=== PATIENT | female | born 1975 | race Two or more races ===

== ENCOUNTER 2018-02-09 13:35 | Inpatient (IN) | payer BC ==
[~2018-02-09] VITALS: Ht 153.2 cm; Wt 76.2 kg
[2018-02-09] MEDS ORDERED: AUGMENTIN 875-1 EAC1 ORAL (13:45)
[2018-02-09] MEDS ORDERED: BACTRIM DOUBLE S1 E1 ORAL (13:45)
[2018-02-09] MEDS ORDERED: Sodium Chloride 500ML 500 ML IV ONE (13:49)
[2018-02-09 14:29] VITALS: BP 135/80
[2018-02-09 15:13] LABS: BASOPHILS % (AUTO) 0.7 % (0.0-2.0); EOSINOPHILS % (AUTO) 1.6 % (0.0-3.0); HEMATOCRIT 36.2 % (37.0-47.0); HEMOGLOBIN 11.9 G/DL (12.0-16.0); LYMPHOCYTES % (AUTO) 25.5 % (20.0-45.0); MEAN CORPUSCULAR VOLUME 86 FL (80-99); MONOCYTES % (AUTO) 4.4 % (1.0-10.0); NEUTROPHILS % (AUTO) 67.8 % (45.0-75.0); PLATELET COUNT 300 K/UL (150-450); RED BLOOD COUNT 4.18 M/UL (4.20-5.40)
[2018-02-09] MEDS ORDERED: Morphine Sulfate 2mg/ml Inj IVP PRN ×2 (15:15→18:30)
[2018-02-09 15:23] LABS: ANION GAP 8 mmol/L (5-15); BLOOD UREA NITROGEN 15 mg/dL (7-18); CARBON DIOXIDE 26 MMOL/L (21-32); CHLORIDE 104 MMOL/L (98-107); CREATININE 0.8 MG/DL (0.55-1.30); POTASSIUM 3.6 MMOL/L (3.5-5.1); SODIUM 138 MMOL/L (136-145)
[2018-02-09 15:25] LABS: ALANINE AMINOTRANSFERASE 25 U/L (12-78); ALBUMIN 3.4 G/DL (3.4-5.0); ALBUMIN/GLOBULIN RATIO 0.6 (1.0-2.7); ALKALINE PHOSPHATASE 112 U/L (46-116); ASPARTATE AMINO TRANSFERASE 16 U/L (15-37); BILIRUBIN,TOTAL 0.2 MG/DL (0.2-1.0)
[2018-02-09 15:27] LABS: APPEARANCE,URINE SLIGHTLY CLOUDY; BILIRUBIN, URINE NEGATIVE (NEGATIVE); GLUCOSE, URINE (UA) NEGATIVE (NEGATIVE); KETONES,URINE 1+ (NEGATIVE); LEUKOCYTE ESTERASE ,URINE 2+ (NEGATIVE); NITRITE,URINE NEGATIVE (NEGATIVE); PH,URINE 6 (4.5-8.0); PROTEIN,URINE 2+ (NEGATIVE); UROBILINOGEN,URINE NORMAL MG/DL (0.0-1.0)
[2018-02-09 15:29] LABS: COLOR,URINE YELLOW
--- NOTE | 2018-02-09 16:05 | Diagnostic Imaging Report ---
Indication: Chest pain Technique: One view of the chest Comparison: none Findings: Lungs and pleural spaces are clear. Heart size is normal Impression: No acute process
[2018-02-09 17:01] VITALS: BP 110/60
--- NOTE | 2018-02-09 18:08 | Emergency Room Report ---
History of Present Illness General Chief Complaint: Skin Rash/Abscess Source: Patient Present Illness HPI 42-year-old female presents ED for evaluation. Patient was referred here by Dr. Heck. Patient has history of hidradenitis for the last 4 years. Has received multiple treatments including antibiotics without resolution. States symptoms are getting worse. Denies pain. Denies fevers or chills. No other aggravating relieving factors. Denies any other associated symptoms Allergies: Coded Allergies: No Known Allergies (Unverified , 02/09/18) Patient History Past Medical History: other - hidradenitis Past Surgical History: none Pertinent Family History: none Social History: Denies: smoking, alcohol use, drug use Last Menstrual Period: 01/22/2018 Now: No Immunizations: UTD Reviewed Nursing Documentation: PMH: Agreed; PSxH: Agreed Nursing Documentation-PMH Past Medical History: No Stated History Review of Systems All Other Systems: negative except mentioned in HPI Physical Exam Vital Signs Date Time Temp Pulse Resp B/P (MAP) Pulse Ox O2 Delivery O2 Flow Rate FiO2 02/09/18 13:39 98.4 89 12 135/80 97 Room Air Sp02 EP Interpretation: reviewed, normal General Appearance: no apparent distress, alert, GCS 15, non-toxic Head: normocephalic, atraumatic Eyes: bilateral eye normal inspection, bilateral eye PERRL ENT: hearing grossly normal, normal pharynx, no angioedema, normal voice Neck: full range of motion, supple/symm/no masses Respiratory: chest non-tender, lungs clear, normal breath sounds, speaking full sentences Cardiovascular #1: regular rate, rhythm, no edema Cardiovascular #2: 2+ carotid (R), 2+ carotid (L), 2+ radial (R), 2+ radial (L) , 2+ dorsalis pedis (R), 2+ dorsalis pedis (L) Gastrointestinal: normal bowel sounds, non tender, soft, non-distended, no guarding, no rebound Rectal: deferred Genitourinary: normal inspection, no CVA tenderness Musculoskeletal: back normal, gait/station normal, normal range of motion, non- tender Neurologic: alert, oriented x3, responsive, motor strength/tone normal, sensory intact, speech normal Psychiatric: judgement/insight normal, memory normal, mood/affect normal, no suicidal/homicidal ideation Reflexes: 3+ bicep (R), 3+ bicep (L), 3+ tricep (R), 3+ tricep (L), 3+ knee (R) , 3+ knee (L) Skin: other - hidradenitis bilateral axilla Lymphatic: no adenopathy Medical Decision Making Diagnostic Impression: Primary Impression: Hidradenitis axillaris ER Course Hospital Course 42-year-old female referred to ED for evaluation of her hidradenitis Differential diagnoses include: Cellulitis, abscess, rash. Clinical course Patient placed on stretcher. After initial history and physical I ordered labs , blood Cx, EKG, CXR labs reviewed - no leukocytosis, Hb/Hct stable, no electrolyte abnormalities. EKG-normal sinus rhythm no acute changes interpreted by me Chest x-ray unremarkable antibiotics given. Dr. Heck consulted and aware. Case discussed with Dr Rivera and he agreed to accept the patient to his service for further care and support Diagnosis - hidradenitis Patient admitted to floor in serious condition EKG Diagnostic Results Rate: normal Rhythm: NSR ST Segments: no acute changes ASA given to the pt in ED: No Rhythm Strip Diag. Results EP Interpretation: yes Rhythm: NSR, no PVC's, no ectopy Chest X-Ray Diagnostic Results Chest X-Ray Diagnostic Results : Chest X-Ray Ordered: Yes # of Views/Limited/Complete: 1 View Indication: Other - preop EP Interpretation: Yes Interpretation: no consolidation, no effusion, no pneumothorax, no acute cardiopulmonary disease Impression: No acute disease Electronically Signed by: Electronically signed by Dimitry Gonzalez MD Last Vital Signs Date Time Temp Pulse Resp B/P (MAP) Pulse Ox O2 Delivery O2 Flow Rate FiO2 02/09/18 17:01 98.3 65 19 110/60 (77) 97 02/09/18 16:31 Room Air Status: improved Disposition: ADMITTED INPATIENT Condition: Stable Referrals: Shalini Heck MD (PCP) Dimitry Gonzalez MD Feb 09, 2018 18:08
--- NOTE | 2018-02-09 18:34 | History and Physical ---
History of Present Illness General Date patient seen: Feb 09, 2018 Time patient seen: 18:05 Reason for Hospitalization: Skin Rash/Abscess Present Illness HPI 42 yo female with no sig pmh presents with complaints of b/l axillary pain. Patient states pain has been getting worse since a month ago. States there is drainage from the area. Denies any fevers/chills. States pain is 10/10 in severity, denies any radiation. States drainage is thick. States she has tried taking antibiotics such as augmentin and bactrim without resolution of symptoms. Social Hx: reviewed, denies any smoking, drug use , or alcohol use fam hx: reviewed, denies any sig past fam hx code status reviewed, would like to remain full code. Allergies: Coded Allergies: No Known Allergies (Unverified , 02/09/18) Medication History Scheduled Amoxicillin/Potassium Clav 875-125* (Augmentin 875-125 Tablet*), 1 TAB ORAL TWICE A DAY, (Reported) Trimethoprim/Sulfamethoxazole (Bactrim 400-80 mg Tablet), 1 TAB ORAL TWICE A DAY , (Reported) Patient History History Provided By: Patient Healthcare decision maker Resuscitation status Full Code Advanced Directive on File No Review of Systems Constitutional: Reports: weakness; Denies: chills, sweats, fever, malaise Eye: Denies: eye pain, blurred vision, tearing, double vision, nose pain, nose congestion, acuity changes, discharge ENT: Denies: ear pain, ear discharge, nose pain, nose congestion, throat pain, throat swelling, mouth pain, hearing loss Respiratory: Denies: cough, orthopnea, shortness of breath, stridor, wheezing, BOBO, sputum Cardiovascular: Reports: see HPI; Denies: chest pain, edema, palpitations, syncope, PND Gastrointestinal: Denies: abdominal pain, constipation, diarrhea, nausea, vomiting, melena, hematemesis Genitourinary: Denies: discharge, dysuria, frequency, hematuria, pain, retention, incontinence, urgency, vag bleed/dc Musculoskeletal: Denies: back pain, gout, joint pain, joint swelling, muscle pain, muscle stiffness Skin: Reports: rash, change in color, lesions, other - drainage from axilla b/ l with pain ; Denies: change in hair/nails, dryness Psychiatric: Denies: prior hx, anxiety, depressed feelings, emotional problems , SI, HI, hallucinations Neurological: Denies: headache, numbness, paresthesia, seizure, tingling, tremors, focal weakness, syncope, dizziness Endocrine: Denies: excessive sweating, flushing, intolerance to temperature, increased thirst, increased urine, unexplained weight loss Hematologic/Lymphatic: Denies: anemia, blood clots, easy bleeding, easy bruising, swollen glands, diathesis Physical Exam General Appearance: WD/WN, no apparent distress Lines, tubes and drains: peripheral HEENT: normocephalic, atraumatic, anicteric Neck: non-tender, normal alignment, supple, normal inspection Respiratory/Chest: chest wall non-tender, lungs clear, normal breath sounds, no respiratory distress, no accessory muscle use Cardiovascular/Chest: normal peripheral pulses, normal rate, regular rhythm Abdomen: normal bowel sounds, non tender, soft, no organomegaly, no mass Extremities: normal range of motion, other - +TTP b/l axillas Skin Exam: other - b/l abscesses around 8cm, severe erythema with mucopurulent discharge 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, no motor/sensory deficits, alert, oriented x 3, responsive, normal mood/affect Last 24 Hour Vital Signs Date Time Temp Pulse Resp B/P (MAP) Pulse Ox O2 Delivery O2 Flow Rate FiO2 02/09/18 17:01 98.3 65 19 110/60 (77) 97 02/09/18 16:31 Room Air 02/09/18 15:25 98.4 73 12 135/80 97 Room Air 02/09/18 14:29 98.4 73 12 135/80 97 Room Air 02/09/18 13:39 98.4 89 12 135/80 97 Room Air Laboratory Tests Test 02/09/18 14:45 02/09/18 14:55 White Blood Count 9.0 K/UL (4.8-10.8) Red Blood Count 4.18 M/UL (4.20-5.40) L Hemoglobin 11.9 G/DL (12.0-16.0) L Hematocrit 36.2 % (37.0-47.0) L Mean Corpuscular Volume 86 FL (80-99) Mean Corpuscular Hemoglobin 28.4 PG (27.0-31.0) Mean Corpuscular Hemoglobin Concent 32.9 G/DL (32.0-36.0) Red Cell Distribution Width 13.0 % (11.6-14.8) Platelet Count 300 K/UL (150-450) Mean Platelet Volume 7.5 FL (6.5-10.1) Neutrophils (%) (Auto) 67.8 % (45.0-75.0) Lymphocytes (%) (Auto) 25.5 % (20.0-45.0) Monocytes (%) (Auto) 4.4 % (1.0-10.0) Eosinophils (%) (Auto) 1.6 % (0.0-3.0) Basophils (%) (Auto) 0.7 % (0.0-2.0) Prothrombin Time 10.8 SEC (9.30-11.50) Prothromb Time International Ratio 1.0 (0.9-1.1) Activated Partial Thromboplast Time 31 SEC (23-33) Sodium Level 138 MMOL/L (136-145) Potassium Level 3.6 MMOL/L (3.5-5.1) Chloride Level 104 MMOL/L (98-107) Carbon Dioxide Level 26 MMOL/L (21-32) Anion Gap 8 mmol/L (5-15) Blood Urea Nitrogen 15 mg/dL (7-18) Creatinine 0.8 MG/DL (0.55-1.30) Estimat Glomerular Filtration Rate > 60 mL/min (>60) Glucose Level 108 MG/DL (74-106) H Calcium Level 9.0 MG/DL (8.5-10.1) Total Bilirubin 0.2 MG/DL (0.2-1.0) Aspartate Amino Transf (AST/SGOT) 16 U/L (15-37) Alanine Aminotransferase (ALT/SGPT) 25 U/L (12-78) Alkaline Phosphatase 112 U/L (46-116) Total Protein 8.8 G/DL (6.4-8.2) H Albumin 3.4 G/DL (3.4-5.0) Globulin 5.4 g/dL Albumin/Globulin Ratio 0.6 (1.0-2.7) L Lipase 292 U/L (73-393) Urine Color Yellow Urine Appearance Slightly cloudy Urine pH 6 (4.5-8.0) Urine Specific [place] 1.020 (1.005-1.035) Urine Protein 2+ (NEGATIVE) H Urine Glucose (UA) Negative (NEGATIVE) Urine Ketones 1+ (NEGATIVE) H Urine Blood 5+ (NEGATIVE) H Urine Nitrite Negative (NEGATIVE) Urine Bilirubin Negative (NEGATIVE) Urine Urobilinogen Normal MG/DL (0.0-1.0) Urine Leukocyte Esterase 2+ (NEGATIVE) H Urine RBC Tntc /HPF (0 - 2) H Urine WBC 10-15 /HPF (0 - 2) H Urine Squamous Epithelial Cells Few /LPF (NONE/OCC) Urine Bacteria Few /HPF (NONE) Urine Mucus Moderate /LPF (NONE/OCC) H Urine HCG, Qualitative Negative (NEGATIVE) Height (Feet): 5 Height (Inches): 4.00 Weight (Pounds): 168 Medications Current Medications Medications (Trade) Dose Ordered Sig/Nicky Route PRN Reason Start Time Stop Time Status Last Admin Dose Admin Morphine Sulfate (Morphine Sulfate) 2 mg Q6H PRN IVP pain 02/09/18 15:15 02/16/18 15:14 Assessment/Plan Problem List: (1) Rash and other nonspecific skin eruption ICD Codes: R21 - Rash and other nonspecific skin eruption SNOMED: 735811615, 175698364 (2) Abscesses of both axillae ICD Codes: L02.411 - Cutaneous abscess of right axilla; L02.412 - Cutaneous abscess of left axilla SNOMED: 05156343 (3) Cellulitis of axilla ICD Codes: L03.119 - Cellulitis of unspecified part of limb SNOMED: 19058985 (4) Purulent abscess ICD Codes: L02.91 - Cutaneous abscess, unspecified SNOMED: 263124379 (5) Hidradenitis axillaris ICD Codes: L73.2 - Hidradenitis suppurativa SNOMED: 021430143 (6) Failure of outpatient treatment ICD Codes: Z78.9 - Other specified health status SNOMED: 999506026 Status: stable Assessment/Plan #Rash #Abscesses of both axilae #Cellulitis of axilla #Purulent abscess #hidradenitis axillaris #failure of outpatient treatment -start broad spectrum abx, vanco, zosyn. -continue pain control with IV Morphine 2mg q4hrs prn pain -cx wound -not septic, vitals stable, wounds very tender b/l axilla with surrounding cellulitis and mucopurulent discharge, very concerning for severe infection -abscess that was resistant to antibiotics given before ( failed outpatient treatment) -Dr. Heck consulted, likely OR tomorrow AM -diet now and NPO after midnight -hold anticoagulation for likely surgery -ekg reviewed, nsr, no acute st t wave changes noted -no cardiac risk factors noted, patient is low risk for surgery. mets >4. -patient is medically optimized for surgery -postop care: incentive spirometry, antibiotics, pain control, anticoagulation ppx per surgery recs ppx; scd diet: npo after midnight Patient will need at least 2-3 midnights stay for full workup and care admit inpatient I have spent over 79 minutes on this patient's case, and over 45 minutes was dedicated to counseling and/or care coordination. Aditya Zarco MD Feb 09, 2018 18:34
[2018-02-09 20:00] VITALS: BP 99/63
[2018-02-09] MEDS ORDERED: Vancomycin 1.5 GM/D5W 250ML IVPB ONE (20:00)
[2018-02-09] MEDS: Piperacillin/Tazobactam 3.375 GM in D5W 110 ML IVPB SCH (21:56)
[2018-02-10] VITALS (15 sets, daily range): BP systolic 94–145; BP diastolic 54–78
[2018-02-10] MEDS: Piperacillin/Tazobactam 3.375 GM in D5W 110 ML IVPB SCH ×3 (06:01→22:57)
--- NOTE | 2018-02-10 07:42 | Anethesia Preoperative Eval ---
Anesthesia Pre-op PMH/ROS General Date of Evaluation: Feb 10, 2018 Time of Evaluation: 09:35 Anesthesiologist: Luz Gomez CRNA ASA Score: ASA 2 Mallampati Score Class I : Soft palate, uvula, fauces, pillars visible Class II: Soft palate, uvula, fauces visible Class III: Soft palate, base of uvula visible Class IV: Only hard plate visible Mallampati Classification: Class II Surgeon: Maria R Diagnosis: hydradenitits (B) axilla; cellulitis Surgical Procedure: (B) axillary debridement with flap (B) Anesthesia History: none Family History: no anesthesia problems Allergies: Coded Allergies: No Known Allergies (Unverified , 02/09/18) Medications: see eMAR Patient NPO?: Yes NPO Date: Feb 10, 2018 NPO Time: 00:00 Past Medical History Cardiovascular: Denies: HTN, CAD, [place], valve dz, arrhythmia, other Gastrointestinal/Genitourinary: Denies: GERD, CRI, ESRD, other Neurologic/Psychiatric: Denies: dementia, CVA, depression/anxiety, TIA, other Endocrine: Denies: DM, hypothyroidism, steroids, other HEENT: Denies: cataract (L), cataract (R), glaucoma, SALAMATOF (L), SALAMATOF (R), other Hematology/Immune: Denies: anemia, DVT, bleeding disorder, other Musculoskeletal/Integumentary: Reports: other - (B) hydradenitis; Denies: OA, RA, DJD, DDD, edema Other: obesity PMH Narrative: hx of recurrent (B) hydradenitis x 4 yrs, admit to ED 02/09/18 pain 10/10 PSxH Narrative: RIGHT leg surgery x 9 Anesthesia Pre-op Phys. Exam Physician Exam Last Vital Signs Date Time Temp Pulse Resp B/P (MAP) Pulse Ox O2 Delivery O2 Flow Rate FiO2 02/10/18 06:44 98.2 55 17 107/60 (76) 98 02/09/18 21:00 Room Air Constitutional: NAD Neurologic: CN 2-12 intact Cardiovascular: RRR Respiratory: CTA Gastrointestinal: S/NT/ND Airway Exam Mallampati Score: Class II MO: full Neck: no limitations TMD: >3FB ROM: full Teeth: intact Dentures: no upper, no lower Anesthesia Pre-op A/P Labs Hematology Test 02/09/18 14:45 White Blood Count 9.0 K/UL (4.8-10.8) Red Blood Count 4.18 M/UL (4.20-5.40) L Hemoglobin 11.9 G/DL (12.0-16.0) L Hematocrit 36.2 % (37.0-47.0) L Mean Corpuscular Volume 86 FL (80-99) Mean Corpuscular Hemoglobin 28.4 PG (27.0-31.0) Mean Corpuscular Hemoglobin Concent 32.9 G/DL (32.0-36.0) Red Cell Distribution Width 13.0 % (11.6-14.8) Platelet Count 300 K/UL (150-450) Mean Platelet Volume 7.5 FL (6.5-10.1) Neutrophils (%) (Auto) 67.8 % (45.0-75.0) Lymphocytes (%) (Auto) 25.5 % (20.0-45.0) Monocytes (%) (Auto) 4.4 % (1.0-10.0) Eosinophils (%) (Auto) 1.6 % (0.0-3.0) Basophils (%) (Auto) 0.7 % (0.0-2.0) Coagulation Test 02/09/18 14:45 Prothrombin Time 10.8 SEC (9.30-11.50) Prothromb Time International Ratio 1.0 (0.9-1.1) Activated Partial Thromboplast Time 31 SEC (23-33) Chemistry Test 02/09/18 14:45 Sodium Level 138 MMOL/L (136-145) Potassium Level 3.6 MMOL/L (3.5-5.1) Chloride Level 104 MMOL/L (98-107) Carbon Dioxide Level 26 MMOL/L (21-32) Anion Gap 8 mmol/L (5-15) Blood Urea Nitrogen 15 mg/dL (7-18) Creatinine 0.8 MG/DL (0.55-1.30) Estimat Glomerular Filtration Rate > 60 mL/min (>60) Glucose Level 108 MG/DL (74-106) H Calcium Level 9.0 MG/DL (8.5-10.1) Total Bilirubin 0.2 MG/DL (0.2-1.0) Aspartate Amino Transf (AST/SGOT) 16 U/L (15-37) Alanine Aminotransferase (ALT/SGPT) 25 U/L (12-78) Alkaline Phosphatase 112 U/L (46-116) Total Protein 8.8 G/DL (6.4-8.2) H Albumin 3.4 G/DL (3.4-5.0) Globulin 5.4 g/dL Albumin/Globulin Ratio 0.6 (1.0-2.7) L Lipase 292 U/L (73-393) Urine Test Test 02/09/18 14:55 Urine HCG, Qualitative Negative (NEGATIVE) Studies Pre-op Studies: EKG - NSR, CXR - no acute disease Risk Assessment & Plan Assessment: ASA 1, ok to proceed Plan: GA Status Change Before Surgery: No Pre-Antibiotics Drug: zosyn and vancomycin continued from floor Given Within 1 Hr of Incision: Yes Time Given: 09:45 Luz Gomez CRNA Feb 10, 2018 07:42
--- NOTE | 2018-02-10 08:11 | General Progress Note ---
Assessment/Plan Problem List: (1) Rash and other nonspecific skin eruption ICD Codes: R21 - Rash and other nonspecific skin eruption SNOMED: 489270223, 701399456 (2) Abscesses of both axillae ICD Codes: L02.411 - Cutaneous abscess of right axilla; L02.412 - Cutaneous abscess of left axilla SNOMED: 39221770 (3) Cellulitis of axilla ICD Codes: L03.119 - Cellulitis of unspecified part of limb SNOMED: 86044474 (4) Purulent abscess ICD Codes: L02.91 - Cutaneous abscess, unspecified SNOMED: 506219258 (5) Hidradenitis axillaris ICD Codes: L73.2 - Hidradenitis suppurativa SNOMED: 125435457 (6) Failure of outpatient treatment ICD Codes: Z78.9 - Other specified health status SNOMED: 284442358 Status: stable, unchanged Assessment/Plan #Rash #Abscesses of both axilae #Cellulitis of axilla #Purulent abscess #hidradenitis axillaris #failure of outpatient treatment - cont broad spectrum abx : Vanco/zosyn - may need I&D - Dr. Heck aware, pending eval and recs - likely OR today - vitals stable, pending AM labs - pain well controlled, cont IV morphine -abscess that was resistant to antibiotics given before ( failed outpatient treatment) -MPO -hold anticoagulation for likely surgery -ekg reviewed, nsr, no acute st t wave changes noted -no cardiac risk factors noted, patient is low risk for surgery. mets >4. -patient is medically optimized for surgery -postop care: incentive spirometry, antibiotics, pain control, anticoagulation ppx per surgery recs ppx; scd diet: npo I have spent over 44 minutes on this patient's case, counseling and/or care coordination and about 25 minutes of face to face time Subjective Date patient seen: Feb 10, 2018 Time patient seen: 08:08 Allergies: Coded Allergies: No Known Allergies (Unverified , 02/09/18) Subjective f/u axillary abscess with drainage, pain possible I&D required still on broad spectrum abx Dr. Heck aware, pending evaluation no acute events overnight denies fevers/chills pain well controlled ROS: 12 point ros negative except for the above Objective Last 24 Hour Vital Signs Date Time Temp Pulse Resp B/P (MAP) Pulse Ox O2 Delivery O2 Flow Rate FiO2 02/10/18 06:44 98.2 55 17 107/60 (76) 98 02/10/18 00:00 98.3 73 19 98/54 (69) 98 02/09/18 21:00 Room Air 02/09/18 20:00 97.7 67 18 99/63 (75) 98 02/09/18 17:01 98.3 65 19 110/60 (77) 97 02/09/18 16:31 Room Air 02/09/18 15:25 98.4 73 12 135/80 97 Room Air 02/09/18 14:29 98.4 73 12 135/80 97 Room Air 02/09/18 13:39 98.4 89 12 135/80 97 Room Air Intake and Output 02/09/18 02/10/18 18:59 06:59 Intake Total 360.0 ml Balance 360.0 ml Intake IV Total 360.0 ml # Voids 1 Laboratory Tests 02/09/18 14:45: White Blood Count 9.0, Red Blood Count 4.18L, Hemoglobin 11.9L, Hematocrit 36.2L , Mean Corpuscular Volume 86, Mean Corpuscular Hemoglobin 28.4, Mean Corpuscular Hemoglobin Concent 32.9, Red Cell Distribution Width 13.0, Platelet Count 300, Mean Platelet Volume 7.5, Neutrophils (%) (Auto) 67.8, Lymphocytes (% ) (Auto) 25.5, Monocytes (%) (Auto) 4.4, Eosinophils (%) (Auto) 1.6, Basophils ( %) (Auto) 0.7, Prothrombin Time 10.8, Prothromb Time International Ratio 1.0, Activated Partial Thromboplast Time 31, Sodium Level 138, Potassium Level 3.6, Chloride Level 104, Carbon Dioxide Level 26, Anion Gap 8, Blood Urea Nitrogen 15 , Creatinine 0.8, Estimat Glomerular Filtration Rate > 60, Glucose Level 108H, Calcium Level 9.0, Total Bilirubin 0.2, Aspartate Amino Transf (AST/SGOT) 16, Alanine Aminotransferase (ALT/SGPT) 25, Alkaline Phosphatase 112, Total Protein 8.8H, Albumin 3.4, Globulin 5.4, Albumin/Globulin Ratio 0.6L, Lipase 292 02/09/18 14:55: Urine Color Yellow, Urine Appearance Slightly cloudy, Urine pH 6, Urine Specific [place] 1.020, Urine Protein 2+H, Urine Glucose (UA) Negative, Urine Ketones 1+H, Urine Blood 5+H, Urine Nitrite Negative, Urine Bilirubin Negative, Urine Urobilinogen Normal, Urine Leukocyte Esterase 2+H, Urine RBC TntcH, Urine WBC 10-15H, Urine Squamous Epithelial Cells Few, Urine Bacteria Few, Urine Mucus ModerateH, Urine HCG, Qualitative Negative Height (Feet): 5 Height (Inches): 4.00 Weight (Pounds): 168 Objective General Appearance: WD/WN, no apparent distress Lines, tubes and drains: peripheral HEENT: normocephalic, atraumatic, anicteric Neck: non-tender, normal alignment, supple, normal inspection Respiratory/Chest: chest wall non-tender, lungs clear, normal breath sounds, no respiratory distress, no accessory muscle use Cardiovascular/Chest: normal peripheral pulses, normal rate, regular rhythm Abdomen: normal bowel sounds, non tender, soft, no organomegaly, no mass Extremities: normal range of motion, other - +TTP b/l axillas Skin Exam: other - b/l abscesses around 8cm, severe erythema with mucopurulent discharge 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
[2018-02-10] MEDS ORDERED: Lidocaine 1% 10mg/ml/Epi 0.005mg/ml 30ml vial INJ ONE ×2 (09:00→10:37)
[2018-02-10] MEDS ORDERED: NeoSporin Gu Irrig 1ml Amp IRRIG ONE (09:01)
[2018-02-10] MEDS ORDERED: Bacitracin 50000 Units Vial ONE (09:01)
[2018-02-10] MEDS: Vancomycin 1gm/D5W 275ml IVPB SCH ×4 (09:09→20:37)
[2018-02-10 09:21] LABS: BASOPHILS % (AUTO) 0.8 % (0.0-2.0); EOSINOPHILS % (AUTO) 1.7 % (0.0-3.0); HEMATOCRIT 35.9 % (37.0-47.0); HEMOGLOBIN 11.9 G/DL (12.0-16.0); LYMPHOCYTES % (AUTO) 27.3 % (20.0-45.0); MEAN CORPUSCULAR VOLUME 87 FL (80-99); MONOCYTES % (AUTO) 4.9 % (1.0-10.0); NEUTROPHILS % (AUTO) 65.3 % (45.0-75.0); PLATELET COUNT 296 K/UL (150-450); RED BLOOD COUNT 4.13 M/UL (4.20-5.40); RED CELL DISTRIBUTION WIDTH 13.3 % (11.6-14.8); WHITE BLOOD COUNT 8.5 K/UL (4.8-10.8)
[2018-02-10] MEDS ORDERED: LR 1000ml ONE (09:30)
[2018-02-10] MEDS ORDERED: Propofol 200mg/20ml IV ONE (09:30)
[2018-02-10] MEDS ORDERED: Sterile Water Irrig 1000ml IRRIG ONE (09:30)
[2018-02-10] MEDS ORDERED: Lidocaine 1% MPF 10mg/ml 5ml ONE (09:30)
[2018-02-10] MEDS ORDERED: Midazolam 2mg/2ml Inj ONE (09:30)
[2018-02-10] MEDS ORDERED: NS Irrig 1000ml ONE (09:30)
[2018-02-10] MEDS ORDERED: fentaNYL 100 mcg/2 mL IV ONE ×2 (09:30→10:10)
[2018-02-10] MEDS ORDERED: Zemuron 50mg/5ml Inj IV ONE (09:32)
[2018-02-10 09:34] LABS: ANION GAP 7 mmol/L (5-15); BLOOD UREA NITROGEN 9 mg/dL (7-18); CARBON DIOXIDE 26 MMOL/L (21-32); CHLORIDE 106 MMOL/L (98-107); CREATININE 0.7 MG/DL (0.55-1.30); POTASSIUM 4.1 MMOL/L (3.5-5.1); SODIUM 139 MMOL/L (136-145)
--- NOTE | 2018-02-10 09:40 | Pre-Procedure Note/Attestation ---
Pre-Procedure Note/Attestation Complete Prior to Procedure Planned Procedure: bilateral Procedure Narrative: Bilateral axillary debridement and flap elevation Attestation I attest that I discussed the nature of the procedure; its benefits; risks and complications; and alternatives (and the risks and benefits of such alternatives ), prior to the procedure, with the patient (or the patient's legal customer field representative). I attest that, if there was a reasonable possibility of needing a blood transfusion, the patient (or the patient's legal customer field representative) was given the [facility] standardized written summary, pursuant to the Jb Steffany Blood Safety Act ([place] Health and Safety Code # 1645, as amended). I attest that I re-evaluated the patient just prior to the surgery and that there has been no change in the patient's H&P, except as documented below: Shalini Heck MD Feb 10, 2018 09:40
[2018-02-10] MEDS ORDERED: PCA Education Pamphlet MISC ONE (09:45)
[2018-02-10] MEDS ORDERED: Rate Change PCA 1 Each MISC PRN (09:45)
[2018-02-10] MEDS ORDERED: PCA HYDROmorphone 1mg/ml 30 ML IV PRN (09:45)
[2018-02-10] MEDS ORDERED: EPINEPHrine 1mg/1ml Amp ONE (10:36)
[2018-02-10] MEDS ORDERED: Glycopyrrolate 0.2mg/ml 1ml Vial ONE (10:49)
[2018-02-10] MEDS ORDERED: Neostigmine 1mg/ml 10ml Inj ONE (10:49)
[2018-02-10] MEDS ORDERED: Metoclopramide 10mg/2ml Inj ONE (10:49)
[2018-02-10] MEDS ORDERED: Hydromorphone 0.5mg/0.5ml inj IVP PRN (11:00)
[2018-02-10] MEDS ORDERED: DiphenhydrAMINE 50mg/ml Inj IVP PRN (11:00)
--- NOTE | 2018-02-10 11:58 | Operative Note - PDOC ---
Operative Note Operative Note Pre-op Diagnosis: Bilateral axillary HS Procedure: Excision of bilateral axiilary tissue with flap elevation Surgeon: Maria R Evp Marketing: Zachary Anesthesia: general Specimen: yes Complications: none Condition: stable Estimated Blood Loss: none Drains: none Implant(s) used?: No Shalini Heck MD Feb 10, 2018 11:58
--- NOTE | 2018-02-10 12:23 | Immediate Post-Op Evaluation ---
Immediate Post-Op Evalulation Immediate Post-Op Evalulation Procedure: (B) axillary debridement with flap advancement Date of Evaluation: Feb 10, 2018 Time of Evaluation: 12:09 IV Fluids: LR 900 ml, 0.9NS 300 ml Estimated Blood Loss: 75 ml Blood Pressure Systolic: 138 Blood Pressure Diastolic: 78 Pulse Rate: 51 Respiratory Rate: 13 O2 Sat by Pulse Oximetry: 100 Temperature (Fahrenheit): 97.0 Pain Score (1-10): 0 Nausea: No Vomiting: No Complications none Patient Status: awake, reacts, patent, extubated Hydration Status: adequate Drug: see MAR Given Within 1 Hr of Incision: Yes Luz Gomez CRNA Feb 10, 2018 12:23
--- NOTE | 2018-02-10 16:34 | Cardiology Report ---
APPROVED REPORT EKG Measurement Heart [id number] [place] [id number] [id number] Normal sinus rhythm Normal ECG
--- NOTE | 2018-02-10 18:30 | Consultation ---
DATE OF CONSULTATION: 02/09/2018 CONSULTING PHYSICIAN: Shalini Heck M.D. ATTENDING PHYSICIAN: Osmar Jackson M.D. REASON FOR CONSULTATION: Bilateral infected axillary hidradenitis. HISTORY OF PRESENT ILLNESS: This is a 42-year-old female with advanced history of hidradenitis was admitted to the emergency room for significant drainage, pain, tenderness and cellulitis in bilateral axilla secondary to advanced grade 3 hidradenitis suppurativa. PAST MEDICAL HISTORY: Significant for hidradenitis. PAST SURGICAL HISTORY: None. ALLERGIES: Include none. MEDICATIONS: Include chronic use of antibiotics. PHYSICAL EXAMINATION: GENERAL: The patient is alert and oriented x3. HEART: Regular rate and rhythm. ABDOMEN: Soft, nontender, and nondistended. On examination the trunk reveals large areas of sinus tracts with abscess drainage in both axilla that measures areas are approximately 20 x 15 cm centimeters in axillae. ASSESSMENT AND PLAN: This is a 42-year-old female with very advanced hidradenitis with significant tenderness and limitation of mobility of her arms who has having active pain and drainage from these areas. She will require a staged approach with radical excision and flap elevation with definitive reconstruction performed at a second operation during hospitalization. She will be continued to be followed by the medical team who admitted her on IV antibiotics throughout her stay. Shalini Heck M.D. DR: Patt JOB#: [id number] CC:
[2018-02-10] MEDS: PCA shift volume MISC SCH (19:00)
--- NOTE | 2018-02-10 19:00 | Operative Note - Dictated ---
DATE OF OPERATION: 02/10/2018 PREOPERATIVE DIAGNOSIS: Bilateral advanced grade 3 axillary hidradenitis. POSTOPERATIVE DIAGNOSIS: Bilateral advanced grade 3 axillary hidradenitis. PROCEDURES: 1. Radical excision of left axillary tissue bearing hidradenitis suppurativa. 2. Elevation of a lateral chest wall flap measuring 10 x 25 cm. 3. Elevation of an anterior chest wall flap on the left side measuring 8 x 15 cm. 4. Radical excision of right axillary tissue bearing hidradenitis suppurativa. 5. Elevation of a lateral chest wall flap measuring 10 x 20 cm. 6. Elevation of an anterior chest wall flap with measurements of 8 x 15 cm. SURGEON: Shalini Heck M.D. JOB PRINTER APPRENTICE: Wilman Sharma M.D. ANESTHESIA: General. COMPLICATIONS: None. DRAINS: None. SPECIMEN: Include bilateral axillary tissue. DISPOSITION: Stable to the recovery room. INDICATIONS FOR SURGERY: This is a 42-year-old female, admitted through the emergency room for advanced hidradenitis suppurativa with active infection, cellulitis, tenderness, and difficulty with movement of her arms. Upon evaluation by me, I felt that she was an appropriate candidate for radical excision and staged reconstruction. She understood the risks and benefits of surgery and agreed to proceed. DETAILS OF THE OPERATION: The patient was brought to the operating room and laid supine on the operative table. Bilateral axilla was prepped and draped in sterile and usual fashion. We first began by marking out the area of disease as well as the flap needed to be elevated for the left side. Once this was done, a #10 blade was used to make the incision around the axillary tissue and electrocautery was then used to completely excise the disease-bearing tissue. This resulted in a defect that measured approximately 20 x 20 cm and was clearly not amenable to definitive closure. As such, two flaps, a lateral chest wall flap as well as an anterior chest wall flap were designed. The lateral chest wall flap was based off of perforators of the thoracodorsal artery with measurements of 10 x 25 cm. The U-shaped incision for the flap was made. Dissection was carried down to the latissimus muscle. With the flap fully mobilized, we noted that the flap could be inset, however, there was inferior portion of the wound that required further soft tissue coverage which was to be provided by the anterior chest wall flap based off of the branch of the thoracoacromial artery. The flap was elevated off of the pectoralis muscle fascia with measurements again being 8 x 15 cm for this flap. With these flaps both fully mobilized, it was noted that complete soft tissue coverage could be provided, however, given the level of infection that was present, it was decided that the flaps would not be definitively inset until 48 hours later to allow for time for the IV antibiotics and local wound care to allow the wound to get to a steady state. Hemostasis was achieved after pulse lavage irrigation and the flaps were then inset in place and the wound was packed with dressings and compressive dressings were applied. We then turned our attention to the contralateral right axillary wound. A #10 blade was used to make the incision around the markings that were previously made. This resulted in a similar-sized defect of 16 x 20 cm and this was clearly not amenable to definitive primary closure of the wound. As such, flaps had to be elevated for this purpose. A lateral chest wall flap as was done to the other side was elevated with dimensions of 10 x 20 cm based off of perforators of the thoracodorsal artery. I used a U-shaped incision which was made to elevate the flap just above the level of the latissimus dorsi muscle fascia and with the flap inset into the defect, we noted that similar to the other side, the inferior portion of the wound required some more soft tissue coverage, which was to be supplied by the anterior chest wall flap which was based off of perforators of the thoracoacromial artery. The flap was elevated above the pectoralis muscle fascia with proximal and distal incisions made to fully mobilize the flap and with these two flaps fully mobilized, we noted that we were able to bring the two flaps together to provide 100% soft tissue coverage of the wound. As was done on the other side, the flaps were then placed in situ to allow for time for the infection to clear with IV antibiotics and local wound care. Hemostasis was achieved after pulse lavage irrigation. Compressive dressing was applied and the patient would be brought back to the operating room within 48 hours for definitive closure. The patient tolerated the procedure well. There were no complications. Shalini Heck M.D. DR: Keisha JOB#: [id number] CC:
[2018-02-10] MEDS: Heparin 5000 units/ml inj SUBQ SCH (20:39)
[2018-02-11 00:06] VITALS: BP 114/61
[2018-02-11 04:39] VITALS: BP 101/62
[2018-02-11] MEDS: Piperacillin/Tazobactam 3.375 GM in D5W 110 ML IVPB SCH ×3 (06:22→21:21)
[2018-02-11] MEDS: PCA shift volume MISC SCH ×2 (07:00→19:00)
[2018-02-11 08:00] VITALS: BP 112/54
--- NOTE | 2018-02-11 08:30 | General Progress Note ---
Assessment/Plan Problem List: (1) Rash and other nonspecific skin eruption ICD Codes: R21 - Rash and other nonspecific skin eruption SNOMED: 458820325, 810958087 (2) Abscesses of both axillae ICD Codes: L02.411 - Cutaneous abscess of right axilla; L02.412 - Cutaneous abscess of left axilla SNOMED: 22826601 (3) Cellulitis of axilla ICD Codes: L03.119 - Cellulitis of unspecified part of limb SNOMED: 05609886 (4) Purulent abscess ICD Codes: L02.91 - Cutaneous abscess, unspecified SNOMED: 239847248 (5) Hidradenitis axillaris ICD Codes: L73.2 - Hidradenitis suppurativa SNOMED: 574219047 (6) Failure of outpatient treatment ICD Codes: Z78.9 - Other specified health status SNOMED: 278743223 Status: stable Assessment/Plan #Rash #Abscesses of both axilae #Cellulitis of axilla #Purulent abscess #hidradenitis axillaris #failure of outpatient treatment - cont broad spectrum abx : Vanco/zosyn - s/p b/l axillae excision per Dr. Heck on 02/10/18 - stable, doing well, pain well controlled on GLUE JOINTER FEEDER - vitals stable -postop care: incentive spirometry, antibiotics, pain control, heparin ppx per surgery recs ppx; scd, heparin diet: regular diet I have spent over 42 minutes on this patient's case, counseling and/or care coordination and about 24 minutes of face to face time Subjective Date patient seen: Feb 11, 2018 Time patient seen: 08:23 Allergies: Coded Allergies: No Known Allergies (Unverified , 02/09/18) Subjective f/u axillary abscess with drainage, pain s/p b/l excision yesterday on 02/10/18 tolerated procedure well no acute complications noted she states pain is well controlled, on GLUE JOINTER FEEDER denies any fevers/chills/cp/sob/nausea/vomiting/diarrhea/constipation/abd pain ROS: 12 point ros negative except for the above Objective Last 24 Hour Vital Signs Date Time Temp Pulse Resp B/P (MAP) Pulse Ox O2 Delivery O2 Flow Rate FiO2 02/11/18 04:39 98.2 69 16 101/62 (75) 100 02/11/18 04:00 17 02/11/18 00:06 97.8 56 16 114/61 (78) 99 02/11/18 00:00 17 02/10/18 21:00 Room Air 02/10/18 20:56 98.0 51 17 116/59 (78) 99 02/10/18 20:00 18 02/10/18 17:00 98.0 80 17 101/56 (71) 100 02/10/18 16:00 20 02/10/18 16:00 98.0 79 18 96/58 (71) 100 02/10/18 15:00 97.4 57 17 117/60 (79) 100 02/10/18 14:30 97.4 56 16 112/65 (81) 100 02/10/18 14:15 20 02/10/18 14:10 20 02/10/18 13:40 20 02/10/18 13:30 97.2 68 24 125/61 100 Nasal Cannula 3 02/10/18 13:28 97.2 02/10/18 13:25 20 02/10/18 13:10 20 02/10/18 13:00 60 24 126/68 100 Simple Mask 8 02/10/18 12:45 54 24 128/65 100 Simple Mask 8 02/10/18 12:30 49 24 141/61 100 Simple Mask 8 02/10/18 12:23 51 13 100 02/10/18 12:19 50 24 141/60 100 Simple Mask 8 02/10/18 12:14 57 24 145/75 100 Simple Mask 8 02/10/18 12:09 97.0 65 24 139/78 100 Simple Mask 8 02/10/18 09:00 Room Air Intake and Output 02/10/18 02/11/18 18:59 06:59 Intake Total 1392.5 ml 480 ml Output Total 75 ml Balance 1317.5 ml 480 ml Intake Oral 480 ml IV Total 1392.5 ml Output Estimated Blood Loss 75 ml # Voids 3 Laboratory Tests 02/10/18 08:45: White Blood Count 8.5, Red Blood Count 4.13L, Hemoglobin 11.9L, Hematocrit 35.9L , Mean Corpuscular Volume 87, Mean Corpuscular Hemoglobin 28.8, Mean Corpuscular Hemoglobin Concent 33.2, Red Cell Distribution Width 13.3, Platelet Count 296, Mean Platelet Volume 8.1, Neutrophils (%) (Auto) 65.3, Lymphocytes (% ) (Auto) 27.3, Monocytes (%) (Auto) 4.9, Eosinophils (%) (Auto) 1.7, Basophils ( %) (Auto) 0.8, Sodium Level 139, Potassium Level 4.1, Chloride Level 106, Carbon Dioxide Level 26, Anion Gap 7, Blood Urea Nitrogen 9, Creatinine 0.7, Estimat Glomerular Filtration Rate > 60, Glucose Level 92, Calcium Level 9.0 02/11/18 07:20: Vancomycin Level Trough 6.4 Height (Feet): 5 Height (Inches): 0.33 Weight (Pounds): 168 General Appearance: no apparent distress, alert EENT: PERRL/EOMI, normal ENT inspection, TMs normal, pharynx normal Neck: non-tender, normal alignment, supple, normal inspection Cardiovascular: normal peripheral pulses, normal rate, regular rhythm Respiratory/Chest: chest wall non-tender, lungs clear, normal breath sounds, no respiratory distress, no accessory muscle use Abdomen: normal bowel sounds, non tender, soft, no organomegaly, no mass Extremities: normal range of motion, non-tender, normal inspection, no calf tenderness Neurologic: telephone switchboard operator II-XII grossly normal, no motor/sensory deficits, alert, oriented x 3, responsive, normal mood/affect Skin: normal pigmentation, warm/dry, other - b/l axilae with packing placed postop Objective General Appearance: WD/WN, no apparent distress Lines, tubes and drains: peripheral HEENT: normocephalic, atraumatic, anicteric Neck: non-tender, normal alignment, supple, normal inspection Respiratory/Chest: chest wall non-tender, lungs clear, normal breath sounds, no respiratory distress, no accessory muscle use Cardiovascular/Chest: normal peripheral pulses, normal rate, regular rhythm Abdomen: normal bowel sounds, non tender, soft, no organomegaly, no mass Extremities: normal range of motion, other - +TTP b/l axillas Skin Exam: other - b/l abscesses around 8cm, severe erythema with mucopurulent discharge Neurologic: telephone switchboard operator II-XII grossly normal, no motor/sensory deficits, alert, oriented x 3, responsive, normal mood/affect Aditya Zarco MD Feb 11, 2018 08:30
[2018-02-11 08:42] LABS: ANION GAP 7 mmol/L (5-15); BLOOD UREA NITROGEN 5 mg/dL (7-18); CALCIUM 8.2 MG/DL (8.5-10.1); CARBON DIOXIDE 29 MMOL/L (21-32); CHLORIDE 103 MMOL/L (98-107); CREATININE 0.7 MG/DL (0.55-1.30); POTASSIUM 3.5 MMOL/L (3.5-5.1); SODIUM 139 MMOL/L (136-145)
--- NOTE | 2018-02-11 08:52 | General Progress Note ---
Progress Note Progress Note Pt seen and examined. POD# 1 from radical excision of bilateral axillary tissues hidradenitis and flap elevation. Doing well. Dressings CDI. Plan for OR in [place]. Shalini Daniel MD, MD Feb 11, 2018 08:52
[2018-02-11 09:03] LABS: BASOPHILS % (AUTO) 0.3 % (0.0-2.0); EOSINOPHILS % (AUTO) 0.3 % (0.0-3.0); HEMATOCRIT 30.1 % (37.0-47.0); HEMOGLOBIN 9.7 G/DL (12.0-16.0); LYMPHOCYTES % (AUTO) 16.7 % (20.0-45.0); MEAN CORPUSCULAR VOLUME 87 FL (80-99); MONOCYTES % (AUTO) 4.9 % (1.0-10.0); NEUTROPHILS % (AUTO) 77.8 % (45.0-75.0); PLATELET COUNT 250 K/UL (150-450); RED BLOOD COUNT 3.47 M/UL (4.20-5.40); RED CELL DISTRIBUTION WIDTH 13.1 % (11.6-14.8)
[2018-02-11] MEDS: Vancomycin 1gm/D5W 275ml IVPB SCH ×4 (09:17→17:00)
[2018-02-11] MEDS: Heparin 5000 units/ml inj SUBQ SCH ×2 (09:20→21:26)
--- NOTE | 2018-02-11 09:59 | 48 Hour Post Anesthesia Eval ---
Post Anesthesia Evaluation Procedure: (B) axillary debridement with flap advancement Date of Evaluation: Feb 11, 2018 Time of Evaluation: 06:15 Blood Pressure Systolic: 101 0: 62 Pulse Rate: 69 Respiratory Rate: 16 Temperature (Fahrenheit): 98.2 O2 Sat by Pulse Oximetry: 100 Airway: patent Nausea: No Vomiting: No Pain Intensity: 2 Hydration Status: adequate Cardiopulmonary Status: at baseline Mental Status/LOC: patient returned to baseline Post-Anesthesia Complications: 0 Follow-up care needed: N/A - further care as per primary team Annamarie Noriega MD Feb 11, 2018 09:59
[2018-02-11 12:00] VITALS: BP 145/76
--- NOTE | 2018-02-11 12:43 | Anethesia Preoperative Eval ---
Anesthesia Pre-op PMH/ROS General Date of Evaluation: Feb 11, 2018 Time of Evaluation: 06:46 Anesthesiologist: Litzy ASA Score: ASA 2 Mallampati Score Class I : Soft palate, uvula, fauces, pillars visible Class II: Soft palate, uvula, fauces visible Class III: Soft palate, base of uvula visible Class IV: Only hard plate visible Mallampati Classification: Class II Surgeon: Maria R Diagnosis: Hydradenitis Surgical Procedure: Bilateral Axillary Flap Closure Anesthesia History: none Family History: no anesthesia problems Allergies: Coded Allergies: No Known Allergies (Unverified , 02/09/18) Medications: see eMAR Patient NPO?: Yes NPO Date: Feb 10, 2018 NPO Time: 00:00 Past Medical History Musculoskeletal/Integumentary: Reports: other - hydradenitis Other: obesity - BMI 33 Anesthesia Pre-op Phys. Exam Physician Exam Last Vital Signs Date Time Temp Pulse Resp B/P (MAP) Pulse Ox O2 Delivery O2 Flow Rate FiO2 02/11/18 09:59 69 16 100 02/11/18 04:39 98.2 101/62 (75) 02/10/18 21:00 Room Air 02/10/18 13:30 3 Constitutional: NAD Neurologic: CN 2-12 intact Cardiovascular: RRR Respiratory: CTA Gastrointestinal: S/NT/ND Airway Exam Mallampati Score: Class II MO: full ROM: full Teeth: intact Anesthesia Pre-op A/P Labs Hematology Test 02/11/18 07:20 White Blood Count 12.0 K/UL (4.8-10.8) H Red Blood Count 3.47 M/UL (4.20-5.40) L Hemoglobin 9.7 G/DL (12.0-16.0) L Hematocrit 30.1 % (37.0-47.0) L Mean Corpuscular Volume 87 FL (80-99) Mean Corpuscular Hemoglobin 28.0 PG (27.0-31.0) Mean Corpuscular Hemoglobin Concent 32.4 G/DL (32.0-36.0) Red Cell Distribution Width 13.1 % (11.6-14.8) Platelet Count 250 K/UL (150-450) Mean Platelet Volume 7.8 FL (6.5-10.1) Neutrophils (%) (Auto) 77.8 % (45.0-75.0) H Lymphocytes (%) (Auto) 16.7 % (20.0-45.0) L Monocytes (%) (Auto) 4.9 % (1.0-10.0) Eosinophils (%) (Auto) 0.3 % (0.0-3.0) Basophils (%) (Auto) 0.3 % (0.0-2.0) Chemistry Test 02/11/18 07:20 Sodium Level 139 MMOL/L (136-145) Potassium Level 3.5 MMOL/L (3.5-5.1) Chloride Level 103 MMOL/L (98-107) Carbon Dioxide Level 29 MMOL/L (21-32) Anion Gap 7 mmol/L (5-15) Blood Urea Nitrogen 5 mg/dL (7-18) L Creatinine 0.7 MG/DL (0.55-1.30) Estimat Glomerular Filtration Rate > 60 mL/min (>60) Glucose Level 116 MG/DL (74-106) H Calcium Level 8.2 MG/DL (8.5-10.1) L Risk Assessment & Plan Assessment: ASA 2 Plan: GA Status Change Before Surgery: No Pre-Antibiotics Drug: Rogelio Dai MD Feb 11, 2018 12:43
[2018-02-11] MEDS ORDERED: NS 275ml ONE (15:04)
[2018-02-11] MEDS ORDERED: Tubing IV Secondary IV ONE ×2 (15:04→15:23)
[2018-02-11 16:00] VITALS: BP 108/69
[2018-02-11 20:00] VITALS: BP 98/56
[2018-02-12] VITALS (14 sets, daily range): BP systolic 91–161; BP diastolic 61–83
[2018-02-12] MEDS: Vancomycin 1gm/D5W 275ml IVPB SCH ×6 (01:25→23:00)
[2018-02-12] MEDS: Piperacillin/Tazobactam 3.375 GM in D5W 110 ML IVPB SCH ×3 (05:06→21:03)
[2018-02-12] MEDS ORDERED: Lidocaine 1% MPF 10mg/ml 5ml ONE (07:05)
[2018-02-12] MEDS ORDERED: Propofol 200mg/20ml IV ONE ×2 (07:05→08:35)
[2018-02-12] MEDS ORDERED: Midazolam 2mg/2ml Inj ONE (07:05)
[2018-02-12] MEDS ORDERED: fentaNYL 100 mcg/2 mL IV ONE ×3 (07:05→10:56)
[2018-02-12 07:09] LABS: ANION GAP 8 mmol/L (5-15); BLOOD UREA NITROGEN 7 mg/dL (7-18); CALCIUM 8.5 MG/DL (8.5-10.1); CARBON DIOXIDE 27 MMOL/L (21-32); CHLORIDE 105 MMOL/L (98-107); CREATININE 1.3 MG/DL (0.55-1.30); POTASSIUM 3.6 MMOL/L (3.5-5.1); SODIUM 140 MMOL/L (136-145)
[2018-02-12 07:15] LABS: BASOPHILS % (AUTO) 0.6 % (0.0-2.0); EOSINOPHILS % (AUTO) 0.4 % (0.0-3.0); HEMATOCRIT 29.4 % (37.0-47.0); HEMOGLOBIN 9.9 G/DL (12.0-16.0); LYMPHOCYTES % (AUTO) 20.2 % (20.0-45.0); MEAN CORPUSCULAR VOLUME 86 FL (80-99); MONOCYTES % (AUTO) 6.8 % (1.0-10.0); NEUTROPHILS % (AUTO) 71.9 % (45.0-75.0); PLATELET COUNT 258 K/UL (150-450); RED BLOOD COUNT 3.44 M/UL (4.20-5.40); RED CELL DISTRIBUTION WIDTH 12.9 % (11.6-14.8); WHITE BLOOD COUNT 11.2 K/UL (4.8-10.8)
[2018-02-12] MEDS ORDERED: Lidocaine 1% 10mg/ml/EPI 0.01mg/ml 50ml INJ ONE (07:18)
[2018-02-12] MEDS ORDERED: Bacitracin 50000 Units Vial ONE (07:19)
[2018-02-12] MEDS ORDERED: NeoSporin Gu Irrig 1ml Amp IRRIG ONE (07:19)
--- NOTE | 2018-02-12 07:21 | Pre-Procedure Note/Attestation ---
Pre-Procedure Note/Attestation Complete Prior to Procedure Planned Procedure: bilateral Procedure Narrative: Bilateral axillary wound flap closure Indications for Procedure Pre-Operative Diagnosis: Bilateral axillary HS Attestation I attest that I discussed the nature of the procedure; its benefits; risks and complications; and alternatives (and the risks and benefits of such alternatives ), prior to the procedure, with the patient (or the patient's legal internet sales representative). I attest that, if there was a reasonable possibility of needing a blood transfusion, the patient (or the patient's legal internet sales representative) was given the [facility] standardized written summary, pursuant to the [place] Blood Safety Act ([place] Health and Safety Code # 1645, as amended). I attest that I re-evaluated the patient just prior to the surgery and that there has been no change in the patient's H&P, except as documented below: Shalini Heck MD Feb 12, 2018 07:21
[2018-02-12] MEDS ORDERED: PCA Education Pamphlet MISC ONE (07:30)
[2018-02-12] MEDS ORDERED: Acetaminophen (Non formulary) 100 ML IV ONE (07:30)
[2018-02-12] MEDS ORDERED: Sterile Water Irrig 1000ml IRRIG ONE (07:30)
[2018-02-12] MEDS ORDERED: Rate Change PCA 1 Each MISC PRN (07:30)
[2018-02-12] MEDS ORDERED: NS Irrig 2000ml IRRIG ONE (07:30)
[2018-02-12] MEDS ORDERED: Metoclopramide 10mg/2ml Inj IVP PRN ×2 (07:30→14:44)
[2018-02-12] MEDS ORDERED: LR 1000ml ONE (07:30)
[2018-02-12] MEDS ORDERED: NS Irrig 1000ml ONE (07:30)
[2018-02-12] MEDS ORDERED: DiphenhydrAMINE 50mg/ml Inj IVP PRN (08:30)
[2018-02-12] MEDS ORDERED: Hydromorphone 0.5mg/0.5ml inj IVP PRN (08:30)
[2018-02-12] MEDS ORDERED: Dexamethasone 4mg/ml vial ONE (08:41)
[2018-02-12] MEDS ORDERED: Neostigmine 1mg/ml 10ml Inj ONE (10:53)
[2018-02-12] MEDS ORDERED: Glycopyrrolate 0.2mg/ml 1ml Vial ONE (10:53)
--- NOTE | 2018-02-12 11:23 | Operative Note - PDOC ---
Operative Note Operative Note Pre-op Diagnosis: Bilateral axillary HS Procedure: Flap closure of bilateral axillary wounds Surgeon: Maria R Candy Roller: Zachary Anesthesia: general Specimen: yes Complications: none Condition: stable Estimated Blood Loss: none Drains: RAYMOND Implant(s) used?: No Shalini Heck MD Feb 12, 2018 11:23
[2018-02-12] MEDS ORDERED: PCA HYDROmorphone 1mg/ml 30 ML IV PRN (11:37)
--- NOTE | 2018-02-12 11:41 | Immediate Post-Op Evaluation ---
Immediate Post-Op Evalulation Immediate Post-Op Evalulation Procedure: (B) axillary debridement with flap advancement Date of Evaluation: Feb 12, 2018 Time of Evaluation: 11:27 IV Fluids: 0.9 NS 500 ml; LR 1200ml Estimated Blood Loss: 25 ml Blood Pressure Systolic: 157 Blood Pressure Diastolic: 75 Pulse Rate: 76 Respiratory Rate: 22 O2 Sat by Pulse Oximetry: 99 Temperature (Fahrenheit): 97.8 Pain Score (1-10): 0 Nausea: Yes Vomiting: Yes Complications none Patient Status: reacts, patent, extubated Hydration Status: adequate Drug: zosyn Given Within 1 Hr of Incision: Yes Time Given: 06:00 Luz Gomez CRNA Feb 12, 2018 11:41
[2018-02-12] MEDS ORDERED: Vancomycin 1gm/D5W 275ml IVPB SCH ×2 (12:00)
--- NOTE | 2018-02-12 12:34 | 48 Hour Post Anesthesia Eval ---
Post Anesthesia Evaluation Procedure: (B) axillary debridement with flap advancement Date of Evaluation: Feb 12, 2018 Time of Evaluation: 13:42 Blood Pressure Systolic: 161 0: 76 Pulse Rate: 66 Respiratory Rate: 18 Temperature (Fahrenheit): 97.8 O2 Sat by Pulse Oximetry: 100 Airway: patent Nausea: No Vomiting: No Pain Intensity: 3 Hydration Status: adequate Cardiopulmonary Status: Stable Mental Status/LOC: patient returned to baseline Follow-up Care/Observations: 0 Post-Anesthesia Complications: 0 Follow-up care needed: N/A Rogelio Mcghee MD Feb 12, 2018 12:34
--- NOTE | 2018-02-12 13:58 | General Progress Note ---
Assessment/Plan Assessment/Plan #Abscesses and cellulitis of bilateral axillae #Purulent abscess #hidradenitis suppurativa #failure of outpatient treatment #obesity - cont broad spectrum abx : Vanco/zosyn - s/p b/l debridement axillae excision by Dr. Heck on 02/10/18, underwent wound closure 02/12/18 - stable, doing well, pain well controlled on SHAPER MACHINE HAND - vitals stable - continue routine post-op care including: incentive spirometry, antibiotics, pain control, heparin SC for VTE prophylaxis per surgery recs ppx; scd, heparin diet: regular diet I have spent 50 minutes on this patient's case, counseling and/or care coordination and about 26 minutes of face to face time Subjective Date patient seen: Feb 12, 2018 Time patient seen: 13:50 ROS Limited/Unobtainable: No Constitutional: Denies: chills, fever HEENT: Denies: no symptoms Cardiovascular: Denies: chest pain, irregular heart rate Respiratory: Denies: cough, shortness of breath Gastrointestinal/Abdominal: Denies: abdomen distended, abdominal pain Genitourinary: Denies: burning Neurologic/Psychiatric: Denies: anxiety Endocrine: Denies: no symptoms Allergies: Coded Allergies: No Known Allergies (Unverified , 02/09/18) Subjective Medicine followup for bilateral axillary abscess, hidradenitis suppurativa, obesity. Underwent debridement and excision on 02/10. Today she underwent wound closure which was tolerated well. Seen in the post-op setting. No current complaints. Objective Last 24 Hour Vital Signs Date Time Temp Pulse Resp B/P (MAP) Pulse Ox O2 Delivery O2 Flow Rate FiO2 02/12/18 13:29 18 02/12/18 12:34 66 18 100 02/12/18 12:00 66 18 161/76 100 Simple Mask 6 100 02/12/18 11:54 65 20 144/79 100 Simple Mask 6 100 02/12/18 11:45 68 16 157/75 100 Simple Mask 6 100 02/12/18 11:41 76 22 99 02/12/18 11:30 71 18 159/71 100 Simple Mask 6 100 02/12/18 11:27 97.8 76 22 157/75 100 Simple Mask 6 100 02/12/18 04:00 98.5 66 18 91/61 (71) 98 02/12/18 04:00 18 02/12/18 00:00 97.2 80 19 100/70 (80) 97 02/12/18 00:00 19 02/11/18 21:00 Room Air 02/11/18 20:00 17 02/11/18 20:00 97.3 77 20 98/56 (70) 100 02/11/18 16:00 98.0 65 18 108/69 (82) 02/11/18 16:00 18 Intake and Output 02/11/18 02/12/18 18:59 06:59 Intake Total 27.5 ml Balance 27.5 ml IV Total 27.5 ml # Voids 2 Laboratory Tests 02/12/18 06:25: White Blood Count 11.2H, Red Blood Count 3.44L, Hemoglobin 9.9L, Hematocrit 29.4L, Mean Corpuscular Volume 86, Mean Corpuscular Hemoglobin 28.9, Mean Corpuscular Hemoglobin Concent 33.8, Red Cell Distribution Width 12.9, Platelet Count 258, Mean Platelet Volume 7.7, Neutrophils (%) (Auto) 71.9, Lymphocytes (% ) (Auto) 20.2, Monocytes (%) (Auto) 6.8, Eosinophils (%) (Auto) 0.4, Basophils ( %) (Auto) 0.6, Sodium Level 140, Potassium Level 3.6, Chloride Level 105, Carbon Dioxide Level 27, Anion Gap 8, Blood Urea Nitrogen 7, Creatinine 1.3#, Estimat Glomerular Filtration Rate 45.1, Glucose Level 100, Calcium Level 8.5 02/12/18 13:30: Reticulocyte Count [Pending], Sickle Cell Screen [Pending], Fibrinogen [Pending] , Iron Level [Pending], Unsaturated Iron Binding [Pending], Ferritin [Pending], Lactate Dehydrogenase [Pending], Total Protein (PEP) [Pending], Albumin (PEP) [ Pending], Globulin (PEP) [Pending], Albumin/Globulin Ratio [Pending], Alpha-1- Globulins [Pending], Sxgdr-6-Unbedjphx [Pending], Beta Globulins [Pending], Beta Gamma Globulin [Pending], PEP Abnormal Protein Bands [Pending], Protein Electrophoresis Interpret [Pending], Thyroid Stimulating Hormone (TSH) [Pending] Height (Feet): 5 Height (Inches): 0.33 Weight (Pounds): 168 General Appearance: no apparent distress, alert EENT: normal ENT inspection Neck: non-tender, normal alignment Cardiovascular: normal peripheral pulses, normal rate, regular rhythm Respiratory/Chest: lungs clear, normal breath sounds Abdomen: normal bowel sounds, non tender Neurologic: ultrasound technol II-XII grossly normal, no motor/sensory deficits Skin: other - Upper torso surgical dressings noted. Otf Khan MD Feb 12, 2018 13:58
[2018-02-12 14:05] LABS: % IRON SATURATION 10 % (15-50); IRON 17 ug/dL (50-175); TOTAL IRON BINDING CAPACITY 178 ug/dL (250-450)
[2018-02-12 14:13] LABS: LACTATE DEHYDROGENASE 98 U/L (81-234)
[2018-02-12 14:41] LABS: FERRITIN 60 NG/ML (8-388)
--- NOTE | 2018-02-12 16:30 | Operative Note - Dictated ---
DATE OF OPERATION: 02/12/2018 PREOPERATIVE DIAGNOSIS: Bilateral open axillary wound status post flap elevation. POSTOPERATIVE DIAGNOSIS: Bilateral open axillary wound status post flap elevation. PROCEDURES: 1. Preparation of left axillary wound bed for flap transfer. 2. Adjacent tissue transfer closure of left axillary wound measuring 20 x 20 centimeters. 3. Preparation of right axillary wound for flap closure. 4. Adjacent tissue transfer closure of right axillary wound measuring 20 x 15 centimeters. SURGEON: Shalini Heck M.D. ENVIRONMENTAL HEALTH SAFETY MANAGER: Wilman Sharma M.D. ANESTHESIA: General. COMPLICATIONS: None. DRAINS: Included a 15 RAYMOND in both sides. EBL: 50 mL. DISPOSITION: Stable to recovery room. INDICATIONS FOR SURGERY: This is a 42-year-old female who is now two days status post radical excision of bilateral axillary hidradenitis with flap elevation, has been doing well and has been undergoing local wound care with IV antibiotics and upon examination of her wound I felt that she was ready for definitive flap inset with adjacent tissue transfer closure of her wounds. She understood the risks and benefits of surgery and agreed to proceed. DETAILS OF THE OPERATION: The patient was brought to the operating room and laid supine on the operating room table. Her chest and bilateral axilla were prepped and draped in a sterile and usual fashion. We first began on the left side where the wound measured 20 x 20 centimeters. There was no evidence of any remnant hidradenitis disease. At this point, we debrided some of the nonviable skin edges of the wound bed itself as well as the edges of the flap that had to be transferred. We did notice that the lateral chest wall flap that had been previously elevated had areas of ischemia distally. This was debrided sharply to punctate bleeding and it was noted the flap was fully alive and well as was the anterior chest wall flap that had been previously elevated. Once hemostasis was achieved after pulse lavage irrigation, the adjacent tissue transfer was completed of this 20 x 20 centimeter wound by insetting the previously raised lateral chest wall flap based off of perforators of the thoracodorsal artery into the defect, this was secured in place using #0 and 2-0 Vicryl sutures and the inferior portion of the wound was then further closed with adjacent tissue transfer closure by re-elevating the anterior chest wall flap that was based off of the perforators of the thoracoacromial artery that had been previously raised. Both these flaps were further mobilized by definitive transfer by releasing some of the soft tissue attachments to the underlying muscle off the latissimus dorsi muscle of the lateral chest wall flap and the pectoralis muscle flap for the anterior chest wall flap. Once this wound was closed, we had also placed a size 15 Alon-Sheriff drain. The skin was then all closed with ja. We then turned our attention to the contralateral right axillary wound which measured 20 x 15 centimeters in a similar fashion. The wound edges and the flap edges were debrided to punctate bleeding and after pulse lavage irrigation hemostasis was achieved and the lateral chest wall flap was then inset over a size 15 RAYMOND into the defect based off of perforators of the thoracodorsal artery, again the flap was mobilized by releasing some of the soft tissue attachments of the latissimus muscle beneath it to allow for better rotation of the flap and with the flap covering most the superior aspect of the wound. The anterior chest wall flap based off of perforators of the thoracoacromial artery was further mobilized by releasing its soft tissue attachments to the pectoralis muscle to allow for a tension-free repair and soft tissue coverage of the wound. All the wounds were closed using #0 and 2-0 Vicryl sutures. Ja were used to close the skin as was done on the other side and 3-0 nylon suture was used to secure the Alon-Sheriff drain. The patient tolerated the procedure well. There were no complications. Shalini Heck M.D. DR: Patt JOB#: [id number] CC:
--- NOTE | 2018-02-12 17:30 | Consultation ---
DATE OF CONSULTATION: 02/12/2018 HEMATOLOGY/ONCOLOGY CONSULTATION CONSULTING PHYSICIAN: Harley Albrecht M.D. REQUESTING PHYSICIANS: 1. Aditya Zarco M.D. 2. Osmar Jackson M.D. REASON FOR CONSULTATION: Evaluation of anemia. IDENTIFYING DATA: Dear Dr. Zarco and Dr. Jackson, The patient is a pleasant 42-year-old female with past medical history, which is significant for history of anemia in the past, history of bilateral axillary pain, at this time presents to the hospital, has been getting worse for the past month, having some drainage from the area. Denies any fever or chills. Pain is 10/10 in severity. Denies any radiation. The patient antibiotics including Augmentin and Bactrim in regards to the patient's symptoms. At this time, she had surgery this past Thursday and scheduled for surgery for today and noted to have microcytic anemia. Hematology Service consulted in regards to management of her anemia and the patient is to go to the OR. At this time, holding anticoagulation. PAST MEDICAL HISTORY: Hidradenitis, bilateral axillary vein. ALLERGIES: No known drug allergies. SOCIAL HISTORY: She is . She has no kids. No alcohol, tobacco, or illicit drug use. 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 FAMILY HISTORY: Noncontributory. No alcohol use in the family. No history of malignancy. No family history of cardiac disease. MEDICATIONS: At home she takes Augmentin and Bactrim. PAST SURGICAL HISTORY: She had right leg surgery about 20 years ago, nine surgeries at that time and currently her surgery is scheduled for today. REVIEW OF SYSTEMS: CONSTITUTIONAL: No fever, chills, or night sweats. SKIN: No rashes, bumps, or itching. HEENT: No headache, hearing, or visual changes. BREASTS: No lumps, pain, or discharge. PULMONARY: No cough, sputum, or shortness of breath. GASTROINTESTINAL: No nausea, vomiting, or diarrhea. GENITOURINARY: No dysuria, frequency, or urgency. MUSCULOSKELETAL: No joint swelling, muscle pain, or trauma. PHYSICAL EXAMINATION: VITAL SIGNS: Reviewed. GENERAL: No acute distress. PULMONARY: Decreased breath sounds. CARDIOVASCULAR: Regular rate. No S3 or S4. ABDOMEN: Soft, nontender, and nondistended. EXTREMITIES: No cyanosis, swelling, or edema. LABORATORY DATA: Laboratories reviewed. The patient's current BUN of 5, creatinine 0.7. INR of 1. WBC of 12,000, hemoglobin 9.7, hematocrit , and platelet count 250,000. Urinalysis reviewed, positive for some urine rbc's . ASSESSMENT AND RECOMMENDATIONS: 1. Anemia, rule out iron deficiency. The patient has mildly microcytic anemia, rule out other causes. Young female potentially secondary to menstrual periods though she denies having heavy menstrual periods in the past closely monitor. Obtain anemia panel, which has been ordered. Transfuse if hemoglobin less than 7. In addition, give one dose of Epogen given surgery today. 2. Leukocytosis secondary to most recent surgery, bilateral axillary surgery and again scheduled for today. Most recent surgery was this past Thursday. 3. Medical bilateral axillary tissue hidradenitis, flap elevation. 4. Hypocalcemia. We will calcium as required, Os-Vipin and vitamin D. 5. Hyperproteinemia. I have ordered for serum protein electrophoresis to further evaluate as required to make sure the patient does not have any monoclonal bands. In addition, does not have any specific elevation of gamma globulins. I appreciate the consultation. Harley Albrecht M.D. DR: ANU JOB#: [id number] CC:
[2018-02-12] MEDS: Docusate 100mg cap ORAL SCH (18:08)
[2018-02-12] MEDS: PCA shift volume MISC SCH (19:00)
[2018-02-12] MEDS ORDERED: Epogen (for non ESRD use) SUBQ SCH (21:00)
[2018-02-12] MEDS ORDERED: Zolpidem 5mg tab ORAL PRN (21:00)
[2018-02-12] MEDS: Heparin 5000 units/ml inj SUBQ SCH (21:15)
[2018-02-13] VITALS: BP 111/65
[2018-02-13 04:00] VITALS: BP 109/58
[2018-02-13] MEDS: Piperacillin/Tazobactam 3.375 GM in D5W 110 ML IVPB SCH ×3 (05:34→21:43)
[2018-02-13] MEDS: PCA shift volume MISC SCH ×2 (07:23→19:29)
[2018-02-13 08:00] VITALS: BP 113/68
[2018-02-13] MEDS: Docusate 100mg cap ORAL SCH ×2 (09:07→17:40)
[2018-02-13] MEDS: Heparin 5000 units/ml inj SUBQ SCH ×2 (09:08→21:42)
[2018-02-13 12:03] VITALS: BP 107/65
[2018-02-13] MEDS ORDERED: Rate Change PCA 1 Each MISC PRN (13:00)
[2018-02-13] MEDS ORDERED: PCA HYDROmorphone 1mg/ml 30 ML IV PRN (13:00)
[2018-02-13 16:34] VITALS: BP 99/54
--- NOTE | 2018-02-13 16:34 | General Progress Note ---
Assessment/Plan Assessment/Plan #Abscesses and cellulitis of bilateral axillae #Purulent abscess #hidradenitis suppurativa #failure of outpatient treatment #obesity #constipation - cont broad spectrum abx : Vanco/zosyn - s/p b/l debridement axillae excision by Dr. Heck on 02/10/18, underwent wound closure 02/12/18 - stable, doing well, pain well controlled on INTERNAL CONTROL MANAGER - continue Colace, start Miralax prn - continue routine post-op care including: incentive spirometry, antibiotics, pain control, heparin SC for VTE prophylaxis per surgery recs ppx; scd, heparin diet: regular diet I have spent 50 minutes on this patient's case, counseling and/or care coordination and about 26 minutes of face to face time Subjective Date patient seen: Feb 13, 2018 Time patient seen: 16:00 ROS Limited/Unobtainable: No Constitutional: Denies: chills, fever HEENT: Denies: eye pain, blurred vision Cardiovascular: Denies: chest pain, edema Respiratory: Denies: cough, shortness of breath Gastrointestinal/Abdominal: Reports: nausea; Denies: abdomen distended, abdominal pain Neurologic/Psychiatric: Denies: anxiety Hematologic/Lymphatic: Denies: easy bleeding, easy bruising Allergies: Coded Allergies: No Known Allergies (Unverified , 02/09/18) Subjective Medicine followup for bilateral axillary abscess, hidradenitis suppurativa, obesity. Underwent debridement and excision on 02/10. S/p wound closure. Complains of mild nausea and constipation. No abdominal pain. Objective Last 24 Hour Vital Signs Date Time Temp Pulse Resp B/P (MAP) Pulse Ox O2 Delivery O2 Flow Rate FiO2 02/13/18 12:03 99.5 66 20 107/65 (79) 96 02/13/18 12:00 18 02/13/18 09:00 Room Air 02/13/18 08:00 18 02/13/18 08:00 58 18 113/68 (83) 98 02/13/18 04:46 18 02/13/18 04:00 97.2 69 20 109/58 (75) 98 02/13/18 00:00 98.0 68 20 111/65 (80) 98 02/12/18 23:58 18 02/12/18 21:45 Room Air 02/12/18 20:00 98.2 80 20 115/63 (80) 97 02/12/18 19:41 18 Intake and Output 02/12/18 02/13/18 18:59 06:59 Intake Total 750 ml 1152.416 ml Output Total 955 ml Balance 750 ml 197.416 ml Intake Oral 650 ml 620 ml IV Total 100 ml 532.416 ml Output Urine Total 850 ml Drainage Total 105 ml # Voids 6 Laboratory Tests 02/13/18 06:00: Vancomycin Level Trough 36.4H Height (Feet): 5 Height (Inches): 0.33 Weight (Pounds): 168 General Appearance: no apparent distress, alert Neck: non-tender, normal alignment Cardiovascular: normal rate, regular rhythm Respiratory/Chest: chest wall non-tender, lungs clear Abdomen: normal bowel sounds, non tender, soft Neurologic: pay station attendant II-XII grossly normal, no motor/sensory deficits Otf Khan MD Feb 13, 2018 16:34
[2018-02-13] MEDS ORDERED: Miralax 17gm pkt ORAL PRN (16:45)
[2018-02-13 20:00] VITALS: BP 101/58
[2018-02-14] VITALS (7 sets, daily range): BP systolic 104–127; BP diastolic 53–88
[2018-02-14 06:04] LABS: BASOPHILS % (AUTO) 0.6 % (0.0-2.0); EOSINOPHILS % (AUTO) 0.9 % (0.0-3.0); HEMATOCRIT 26.5 % (37.0-47.0); HEMOGLOBIN 8.8 G/DL (12.0-16.0); LYMPHOCYTES % (AUTO) 18.7 % (20.0-45.0); MEAN CORPUSCULAR VOLUME 87 FL (80-99); MONOCYTES % (AUTO) 6.7 % (1.0-10.0); PLATELET COUNT 253 K/UL (150-450); RED BLOOD COUNT 3.05 M/UL (4.20-5.40); WHITE BLOOD COUNT 11.1 K/UL (4.8-10.8)
[2018-02-14] MEDS: Piperacillin/Tazobactam 3.375 GM in D5W 110 ML IVPB SCH ×2 (06:12→14:00)
[2018-02-14 06:32] LABS: ANION GAP 7 mmol/L (5-15); BLOOD UREA NITROGEN 8 mg/dL (7-18); CALCIUM 8.5 MG/DL (8.5-10.1); CARBON DIOXIDE 28 MMOL/L (21-32); CHLORIDE 104 MMOL/L (98-107); CREATININE 1.6 MG/DL (0.55-1.30); POTASSIUM 3.3 MMOL/L (3.5-5.1); SODIUM 139 MMOL/L (136-145)
[2018-02-14] MEDS: PCA shift volume MISC SCH ×2 (07:00→19:00)
[2018-02-14] MEDS: Docusate 100mg cap ORAL SCH ×2 (09:24→18:37)
[2018-02-14] MEDS: Heparin 5000 units/ml inj SUBQ SCH ×2 (09:25→20:37)
--- NOTE | 2018-02-14 10:16 | General Progress Note ---
Progress Note Progress Note Pt seen and examined. POD # 4 and # 2. Doing ok. Dressings are CDI. Plan for removing the dressings in AM. Likely DC home on Thursday AM with abx, pain meds, and home woundcare. MD Maria R Fuentes Amir MD Feb 14, 2018 10:16
[2018-02-14] MEDS ORDERED: Vancomycin 1gm/D5W 275ml IVPB SCH ×2 (11:00)
--- NOTE | 2018-02-14 15:03 | Infectious Diseases Prog Note ---
Assessment/Plan Assessment/Plan Full consult dictated; A) 1) enterobacter uti, mild leukocytosis, low grade fever 2) bilateral axilla wound infection/abscess/cellulitis/hidradenitis suppurativa 3) s/p debridement and wound closure surgery 4) allergies - nkda 5) elevated creatinine noted P) 1) start cefepime and doxycycline, discontinue zosyn and vancomycin ( elevated creatinine noted) 2) continue treatment per primary and surgery 3) monitor labs, recheck ua and culture 4) thank you Subjective Allergies: Coded Allergies: No Known Allergies (Unverified , 02/09/18) Objective Vital Signs Last 24 Hour Vital Signs Date Time Temp Pulse Resp B/P (MAP) Pulse Ox O2 Delivery O2 Flow Rate FiO2 02/14/18 12:00 18 02/14/18 12:00 99.1 70 18 111/67 (82) 96 02/14/18 09:00 Room Air 02/14/18 08:00 99.4 67 13 105/69 (81) 96 02/14/18 08:00 13 02/14/18 04:00 99.1 64 18 104/53 (70) 97 02/14/18 04:00 18 02/14/18 00:00 99.2 65 18 120/66 (84) 97 02/14/18 00:00 18 02/13/18 21:00 Room Air 02/13/18 20:00 99.4 76 18 101/58 (72) 96 02/13/18 20:00 18 02/13/18 16:34 99.4 76 18 99/54 (69) 98 02/13/18 16:00 20 Height (Feet): 5 Height (Inches): 0.33 Weight (Pounds): 168 Laboratory Tests Test 02/14/18 05:30 02/14/18 11:00 White Blood Count 11.1 K/UL (4.8-10.8) H Red Blood Count 3.05 M/UL (4.20-5.40) L Hemoglobin 8.8 G/DL (12.0-16.0) L Hematocrit 26.5 % (37.0-47.0) L Mean Corpuscular Volume 87 FL (80-99) Mean Corpuscular Hemoglobin 29.0 PG (27.0-31.0) Mean Corpuscular Hemoglobin Concent 33.4 G/DL (32.0-36.0) Red Cell Distribution Width 13.0 % (11.6-14.8) Platelet Count 253 K/UL (150-450) Mean Platelet Volume 7.4 FL (6.5-10.1) Neutrophils (%) (Auto) 73.0 % (45.0-75.0) Lymphocytes (%) (Auto) 18.7 % (20.0-45.0) L Monocytes (%) (Auto) 6.7 % (1.0-10.0) Eosinophils (%) (Auto) 0.9 % (0.0-3.0) Basophils (%) (Auto) 0.6 % (0.0-2.0) Sodium Level 139 MMOL/L (136-145) Potassium Level 3.3 MMOL/L (3.5-5.1) L Chloride Level 104 MMOL/L (98-107) Carbon Dioxide Level 28 MMOL/L (21-32) Anion Gap 7 mmol/L (5-15) Blood Urea Nitrogen 8 mg/dL (7-18) Creatinine 1.6 MG/DL (0.55-1.30) H Estimat Glomerular Filtration Rate 35.5 mL/min (>60) Glucose Level 91 MG/DL (74-106) Calcium Level 8.5 MG/DL (8.5-10.1) Random Vancomycin Level 15.8 ug/mL Stool Occult Blood Pending Current Medications Medications (Trade) Dose Ordered Sig/Nicky Route PRN Reason Start Time Stop Time Status Last Admin Dose Admin Acetaminophen (Tylenol) 650 mg Q4H PRN ORAL FEVER 02/12/18 11:29 03/14/18 11:28 Docusate Sodium (Colace) 100 mg TWICE A DAY ORAL 02/12/18 18:00 03/14/18 17:59 02/14/18 09:24 Heparin Sodium (Porcine) (Heparin 5000 units/ml) 5,000 units EVERY 12 HOURS SUBQ 02/12/18 21:00 03/14/18 20:59 02/14/18 09:25 Hydromorphone HCl 30 ml @ 0 mls/hr Q24H PRN IV For Pain 02/13/18 13:00 02/15/18 12:59 Hydromorphone HCl (Dilaudid) 2 mg Q3H PRN SUBQ Severe Pain (Pain Scale 7-10) 02/13/18 13:00 02/20/18 12:59 Hydromorphone HCl (Dilaudid) 2 mg Q4H PRN IVP Moderate Pain (Pain Scale 4-6) 02/13/18 13:00 02/20/18 12:59 Metoclopramide HCl (Reglan) 5 mg Q6H PRN IVP Nausea & Vomiting 02/12/18 14:44 03/14/18 14:43 02/13/18 14:34 Miscellaneous Medication (DIETARY SERVICES DIRECTOR Rate Change) 1 ea DAILY PRN MISC rate change 02/13/18 13:00 02/15/18 12:59 Miscellaneous Medication (DIETARY SERVICES DIRECTOR shift volume) 1 ea Q12HR@0700,1900 MISC 02/13/18 19:00 02/15/18 18:59 02/14/18 07:00 Naloxone HCl (Narcan) 0.1 mg PRN IV RR<10 SBP<90 02/13/18 13:00 03/15/18 12:59 Ondansetron HCl (Zofran) 4 mg Q6H PRN IVP Nausea & Vomiting 02/12/18 07:30 03/14/18 07:29 02/13/18 19:43 Polyethylene Glycol (Miralax) 17 gm DAILYPRN PRN ORAL Constipation 02/13/18 16:45 03/15/18 16:44 02/13/18 17:41 Promethazine HCl (Phenergan) 12.5 mg EVERY 8 HOURS PRN IM Nausea & Vomiting 02/14/18 00:15 03/16/18 00:14 Sodium Chloride 1,000 ml @ 0 mls/hr Q0M IV 02/10/18 18:45 03/12/18 18:44 Vancomycin HCl (Vanco rx to dose) 1 ea DAILY PRN MISC Per rx protocol 02/09/18 18:30 03/11/18 18:29 Zolpidem Tartrate (Ambien) 5 mg QHS PRN ORAL Insomnia 02/12/18 21:00 02/19/18 20:59 Niurka Wilkins MD Feb 14, 2018 15:02
[2018-02-14 16:31] LABS: APPEARANCE,URINE CLEAR; BILIRUBIN, URINE NEGATIVE (NEGATIVE); COLOR,URINE PALE YELLOW; GLUCOSE, URINE (UA) NEGATIVE (NEGATIVE); KETONES,URINE NEGATIVE (NEGATIVE); LEUKOCYTE ESTERASE ,URINE 1+ (NEGATIVE); NITRITE,URINE NEGATIVE (NEGATIVE); PH,URINE 7 (4.5-8.0); PROTEIN,URINE 1+ (NEGATIVE); UROBILINOGEN,URINE NORMAL MG/DL (0.0-1.0)
[2018-02-14] MEDS ORDERED: Sodium Chloride 500ML 550 ML IV SCH (17:17)
--- NOTE | 2018-02-14 17:22 | General Progress Note ---
Assessment/Plan Assessment/Plan #Abscesses and cellulitis of bilateral axillae #Purulent abscess #hidradenitis suppurativa #DEBRA #Enterobacter UTI, resistant to Zosyn #failure of outpatient treatment #obesity #constipation - ID eval appreciated start cefepime and doxycycline, discontinue zosyn and vancomycin - s/p b/l debridement axillae excision by Dr. Heck on 02/10/18, underwent wound closure 02/12/18 - Spoke with Nephrology to evaluate DEBRA - Start NS at 75 ml/h, check BMP in AM - stable, doing well, pain well controlled - continue Colace and Miralax prn - continue routine post-op care including: incentive spirometry, antibiotics, pain control, heparin SC for VTE prophylaxis per surgery recs ppx; scd, heparin diet: regular diet I have spent 60 minutes on this patient's case, counseling and/or care coordination and about 35 minutes of face to face time Subjective Date patient seen: Feb 14, 2018 Time patient seen: 16:45 ROS Limited/Unobtainable: No Constitutional: Denies: chills, fever Cardiovascular: Denies: chest pain, edema, irregular heart rate Respiratory: Denies: cough, orthopnea, shortness of breath Gastrointestinal/Abdominal: Reports: nausea; Denies: abdomen distended, abdominal pain Genitourinary: Denies: burning, discharge, frequency Allergies: Coded Allergies: No Known Allergies (Unverified , 02/09/18) Subjective Medicine followup for bilateral axillary abscess, hidradenitis suppurativa, obesity. Underwent debridement and excision on 02/10. S/p wound closure. Still with nausea but having bowel movements. Creatinine noted to be elevated to 1.6 today and urine culture growing Enterobacter resistant to Zosyn. Objective Last 24 Hour Vital Signs Date Time Temp Pulse Resp B/P (MAP) Pulse Ox O2 Delivery O2 Flow Rate FiO2 02/14/18 16:01 99.4 02/14/18 16:00 99.4 74 18 111/66 (81) 98 02/14/18 16:00 18 02/14/18 12:00 18 02/14/18 12:00 99.1 70 18 111/67 (82) 96 02/14/18 09:00 Room Air 02/14/18 08:00 99.4 67 13 105/69 (81) 96 02/14/18 08:00 13 02/14/18 04:00 99.1 64 18 104/53 (70) 97 02/14/18 04:00 18 02/14/18 00:00 99.2 65 18 120/66 (84) 97 02/14/18 00:00 18 02/13/18 21:00 Room Air 02/13/18 20:00 99.4 76 18 101/58 (72) 96 02/13/18 20:00 18 Intake and Output 02/13/18 02/14/18 18:59 06:59 Intake Total 1205.0 ml 350.0 ml Output Total 50 ml 420 ml Balance 1155.0 ml -70.0 ml Intake Oral 1040 ml 240 ml IV Total 165.0 ml 110.0 ml Output Urine Total 350 ml Drainage Total 50 ml 70 ml # Voids 2 Laboratory Tests 02/14/18 05:30: White Blood Count 11.1H, Red Blood Count 3.05L, Hemoglobin 8.8L, Hematocrit 26.5L, Mean Corpuscular Volume 87, Mean Corpuscular Hemoglobin 29.0, Mean Corpuscular Hemoglobin Concent 33.4, Red Cell Distribution Width 13.0, Platelet Count 253, Mean Platelet Volume 7.4, Neutrophils (%) (Auto) 73.0, Lymphocytes (% ) (Auto) 18.7L, Monocytes (%) (Auto) 6.7, Eosinophils (%) (Auto) 0.9, Basophils (%) (Auto) 0.6, Sodium Level 139, Potassium Level 3.3L, Chloride Level 104, Carbon Dioxide Level 28, Anion Gap 7, Blood Urea Nitrogen 8, Creatinine 1.6H, Estimat Glomerular Filtration Rate 35.5, Glucose Level 91, Calcium Level 8.5, Random Vancomycin Level 15.8 02/14/18 11:00: Stool Occult Blood [Pending] 02/14/18 16:00: Urine Color Pale yellow, Urine Appearance Clear, Urine pH 7, Urine Specific [place] 1.005, Urine Protein 1+H, Urine Glucose (UA) Negative, Urine Ketones Negative, Urine Blood Negative, Urine Nitrite Negative, Urine Bilirubin Negative , Urine Urobilinogen Normal, Urine Leukocyte Esterase 1+H, Urine RBC 0, Urine WBC 5-10H, Urine Squamous Epithelial Cells ManyH, Urine Bacteria Few, Urine Yeast ModerateH Height (Feet): 5 Height (Inches): 0.33 Weight (Pounds): 168 General Appearance: no apparent distress, alert Neck: normal alignment, supple Cardiovascular: normal rate, regular rhythm Respiratory/Chest: chest wall non-tender, lungs clear, normal breath sounds Abdomen: non tender, soft Extremities: normal range of motion, non-tender Otf Khan MD Feb 14, 2018 17:22
--- NOTE | 2018-02-15 02:00 | Consultation ---
DATE OF CONSULTATION: 02/14/2018 INFECTIOUS DISEASES CONSULTATION CONSULTING PHYSICIAN: Niurka Wilkins M.D. ATTENDING PHYSICIAN: Osmar Jackson M.D. REFERRING PHYSICIAN: Dr. Otf Khan. REASON FOR CONSULTATION: Enterobacter UTI, elevated white count, low-grade fevers, history of hidradenitis suppurativa, and infection of the axilla. CHIEF COMPLAINT: The patient's chief complaint coming in to the hospital is bilateral axilla infected wounds, abscesses, and cellulitis secondary to hidradenitis suppurativa. HISTORY OF PRESENT ILLNESS: This is a very pleasant 42-year-old female, who comes in to [facility]. The patient has a history of hidradenitis suppurativa involving the bilateral axillae, coming in with infected wounds, abscesses, and cellulitis. The patient is status post debridement and wound closure. The patient's workup shows on admission, looks like she had a urinary tract infection secondary to enterobacter. She did have a positive urinalysis on admission with 10 to 15 white blood cells and 2+ leukocyte esterase. The patient has been having mild leukocytosis and low-grade fevers. Of note, the patient has been on vancomycin and Zosyn. However, kidney function, her creatinine is up to 1.6 from baseline of 0.7. I have stopped the vancomycin and Zosyn and changed the patient to cefepime and doxycycline based on sensitivities of enterobacter. Could not give Zyvox due to drug interactions with medications she is on. Infectious Disease consultation requested for antibiotic management. The patient will continue on cefepime and doxycycline at this time for the enterobacter UTI and history of hidradenitis suppurativa. The patient is status post debridement and wound closure of the axilla. MAR was noted. Orders were noted. Notes were reviewed. REVIEW OF SYSTEMS: CONSTITUTIONAL: She currently has no fevers or night sweats. She has been having low-grade fevers. HEAD AND NECK: No mention of head pain, neck stiffness or neck pain, or change in vision. CARDIAC: No chest pain. GASTROINTESTINAL: No nausea, vomiting, or diarrhea. No abdominal pain. PULMONARY: No congestion or shortness of breath. SKIN: No rash or itching. EXTREMITIES: No extremity pain. NEUROLOGIC: No seizures. GENITOURINARY: No significant dysuria or CVA tenderness. No Hamlin. PAST MEDICAL HISTORY: Includes history of the following. The patient has a past history of hidradenitis suppurativa, at this time involving the axilla. Again, she is status post debridement and closure. She also notes she has been on amoxicillin and Bactrim prior to admission it looks like. She failed therapy for the hidradenitis suppurativa with the antibiotics. She also has other past medical issues, seems to have anemia at this time. She has a history of obesity. No other significant past medical history. No diabetes, hypertension, cancer, or heart disease. Negative for those. ALLERGIES: No known drug allergies. SOCIAL HISTORY: Negative for smoking, alcohol, or drug use. FAMILY HISTORY: Noncontributory. MEDICATIONS: Upon reviewing the MAR, she is on following medications. She is on doxycycline and cefepime. I have stopped the vancomycin and Zosyn. She is on Phenergan. She is on MiraLAX and hydromorphone. She is on Dilaudid and Narcan. She is on heparin, zolpidem, docusate, Reglan, metoclopramide, acetaminophen, and Zofran. Outside medications noted and reconciliated. PHYSICAL EXAMINATION: VITAL SIGNS: She has been having low-grade temperature of 99.4 and 99.1, currently pulse rate 70, respiratory rate 18, blood pressure 111/67, and saturation 96%. GENERAL: Alert and responsive, in no acute distress. HEAD AND NECK: Oral exam, no thrush. Eye exam, no icterus. Neck is supple. No JVD. Normocephalic. HEART: Regular. No gallop or murmur. ABDOMEN: Soft. Positive bowel sounds. Nontender. LUNGS: Clear bilaterally. No rhonchi or rales. SKIN: No rash. MUSCULOSKELETAL: No effusions. Legs are without cellulitis. PERIPHERAL VASCULAR: No cyanosis. GENITOURINARY: She has no Hamlin. No CVA tenderness. LINES: Line sites are without phlebitis. She has no PICC line. NEUROLOGIC: Intact. Her wounds are covered postoperatively. LABORATORY AND DIAGNOSTIC DATA: Laboratory data as follows. Creatinine is 1.6, baseline is 0.7. White count 11.1 and hemoglobin 8.8. White count has been as high as 12.0. Urinalysis had on admission 2+ leukocyte esterase and 10 to 15 white blood cells. Now it is 1+ leukocyte esterase and 5 to 10 white blood cells. Urine culture is growing out 10,000 to 20,000 Enterobacter cloacae. Of note, the patient was on antibiotics in the outpatient setting, which could affect these cultures. IMAGING STUDIES: Chest x-ray was done on admission and was normal, there was no acute process. ASSESSMENT AND PLAN: 1. The patient had enterobacter UTI with mild leukocytosis and low-grade fevers. She also has history of bilateral axilla infected wounds, abscesses, and cellulitis secondary to hidradenitis suppurativa. The patient is status post debridement and wound closure. At this time, because of the elevated creatinine, her creatinine baseline 0.7, now it is 1.6, I stopped the vancomycin and Zosyn. I am changing the antibiotics. The enterobacter was resistant to Zosyn anyways. I am changing her to cefepime and doxycycline. Cefepime has gram-negative coverage to cover the enterobacter; in addition, doxycycline has Staph aureus coverage including MRSA coverage. Cannot give Zyvox due to drug interactions. Continue doxycycline and cefepime. Continue wound care per Surgery. We will monitor laboratories and leukocytosis. Recheck UA and C&S for status of the UTI. Continue digoxin and cefepime for enterobacter UTI and status post debridement for axilla wounds, abscesses, and cellulitis with wound closure for hidradenitis suppurativa. 2. History of hidradenitis suppurativa. 3. History of antibiotic use prior to admission. 4. The patient has anemia. 5. Obesity. 6. No history of diabetes. 7. No history of hypertension. 8. No known allergies. 9. Social history negative. 10. Family history is noncontributory. 11. MAR was noted. 12. Case discussed with RN. 13. Continue treatment per primary senior application security consultant. Thank you. I will follow. Niurka Wilkins M.D. DR: JENNIFER JOB#: [id number] CC:
[2018-02-15 04:00] VITALS: BP 125/75
[2018-02-15 06:27] LABS: BASOPHILS % (AUTO) 0.5 % (0.0-2.0); EOSINOPHILS % (AUTO) 1.2 % (0.0-3.0); HEMATOCRIT 26.3 % (37.0-47.0); HEMOGLOBIN 8.7 G/DL (12.0-16.0); LYMPHOCYTES % (AUTO) 14.9 % (20.0-45.0); MEAN CORPUSCULAR VOLUME 86 FL (80-99); MONOCYTES % (AUTO) 7.3 % (1.0-10.0); NEUTROPHILS % (AUTO) 76.2 % (45.0-75.0); PLATELET COUNT 265 K/UL (150-450); RED BLOOD COUNT 3.04 M/UL (4.20-5.40); RED CELL DISTRIBUTION WIDTH 12.5 % (11.6-14.8); WHITE BLOOD COUNT 11.2 K/UL (4.8-10.8)
[2018-02-15 06:58] LABS: ANION GAP 5 mmol/L (5-15); BLOOD UREA NITROGEN 9 mg/dL (7-18); CALCIUM 8.6 MG/DL (8.5-10.1); CARBON DIOXIDE 28 MMOL/L (21-32); CHLORIDE 105 MMOL/L (98-107); CREATININE 1.5 MG/DL (0.55-1.30); POTASSIUM 3.4 MMOL/L (3.5-5.1); SODIUM 138 MMOL/L (136-145)
[2018-02-15] MEDS: PCA shift volume MISC SCH (07:03)
--- NOTE | 2018-02-15 07:03 | General Progress Note ---
Assessment/Plan Assessment/Plan 1. Anemia due to iron deficiency, in young woman, likely related to underlying menstrual cycle. The patient has mildly microcytic anemia, rule out other causes. Young female potentially secondary to menstrual periods though she denies having heavy menstrual periods in the past --> anemia panel has been reviewed --> 5days of iv iron has been ordered --> no hemolysis is noted --> transfuse only on PRN basis, if hypotensive or hgb <7 --> 1 dose of epo given prior to surgery 2. Leukocytosis secondary to most recent surgery, bilateral axillary surgery and again scheduled for today. Most recent surgery was this past Thursday. --> improved, also could be 2/2 uti 3. Hiddradenitis with bilateral axillary tissue hidradenitis, flap elevation. --> as per surgery 4. Hypocalcemia. We will administer calcium as required, Os-Vipin and vitamin D. 5. Hyperproteinemia. spep still pending Greatly appreciate consultation! Subjective Constitutional: Denies: no symptoms, chills, diaphoresis, fever, malaise, weakness, other HEENT: Denies: no symptoms, eye pain, blurred vision, tearing, double vision, ear pain, ear discharge, nose pain, nose congestion, throat pain, throat swelling, mouth pain, mouth swelling, other Cardiovascular: Denies: no symptoms, chest pain, edema, irregular heart rate, lightheadedness, palpitations, syncope, other Respiratory: Denies: no symptoms, cough, orthopnea, shortness of breath, SOB with excertion, SOB at rest, sputum, stridor, wheezing, other Gastrointestinal/Abdominal: Denies: no symptoms, abdomen distended, abdominal pain, black stools, tarry stools, blood in stool, constipated, diarrhea, difficulty swallowing, nausea, poor appetite, poor fluid intake, rectal bleeding , vomiting, other Genitourinary: Denies: no symptoms, burning, discharge, frequency, flank pain, hematuria, incontinence, pain, urgency, other Neurologic/Psychiatric: Denies: no symptoms, anxiety, depressed, emotional problems, headache, numbness, paresthesia, pre-existing deficit, seizure, tingling, tremors, weakness, other Endocrine: Denies: no symptoms, excessive sweating, flushing, intolerance to cold, intolerance to heat, increased hunger, increased thirst, increased urine, unexplained weight gain, unexplained weight loss, other Allergies: Coded Allergies: No Known Allergies (Unverified , 02/09/18) Subjective started on 5 days of iron today Objective Last 24 Hour Vital Signs Date Time Temp Pulse Resp B/P (MAP) Pulse Ox O2 Delivery O2 Flow Rate FiO2 02/15/18 04:00 18 02/15/18 04:00 98.2 64 18 125/75 (92) 98 02/15/18 00:00 18 02/14/18 23:30 98.2 67 20 127/88 (101) 99 02/14/18 21:00 Room Air 02/14/18 20:00 18 02/14/18 20:00 98.3 67 18 117/59 (78) 98 02/14/18 16:01 99.4 02/14/18 16:00 99.4 74 18 111/66 (81) 98 02/14/18 16:00 18 02/14/18 12:00 18 02/14/18 12:00 99.1 70 18 111/67 (82) 96 02/14/18 09:00 Room Air 02/14/18 08:00 99.4 67 13 105/69 (81) 96 02/14/18 08:00 13 Intake and Output 02/14/18 02/15/18 19:00 07:00 Intake Total 527.5 ml 550 ml Output Total 565 ml 308 ml Balance -37.5 ml 242 ml Intake Oral 500 ml 250 ml IV Total 27.5 ml 300 ml Output Urine Total 500 ml 250 ml Drainage Total 65 ml 58 ml # Voids 3 2 Laboratory Tests 02/14/18 11:00: Stool Occult Blood [Pending] 02/14/18 16:00: Urine Color Pale yellow, Urine Appearance Clear, Urine pH 7, Urine Specific [place] 1.005, Urine Protein 1+H, Urine Glucose (UA) Negative, Urine Ketones Negative, Urine Blood Negative, Urine Nitrite Negative, Urine Bilirubin Negative , Urine Urobilinogen Normal, Urine Leukocyte Esterase 1+H, Urine RBC 0, Urine WBC 5-10H, Urine Squamous Epithelial Cells ManyH, Urine Bacteria Few, Urine Yeast ModerateH 02/15/18 05:35: White Blood Count 11.2H, Red Blood Count 3.04L, Hemoglobin 8.7L, Hematocrit 26.3L, Mean Corpuscular Volume 86, Mean Corpuscular Hemoglobin 28.7, Mean Corpuscular Hemoglobin Concent 33.2, Red Cell Distribution Width 12.5, Platelet Count 265, Mean Platelet Volume 7.1, Neutrophils (%) (Auto) 76.2H, Lymphocytes ( %) (Auto) 14.9L, Monocytes (%) (Auto) 7.3, Eosinophils (%) (Auto) 1.2, Basophils (%) (Auto) 0.5, Sodium Level 138, Potassium Level 3.4L, Chloride Level 105, Carbon Dioxide Level 28, Anion Gap 5, Blood Urea Nitrogen 9, Creatinine 1.5H, Estimat Glomerular Filtration Rate 38.3, Glucose Level 99, Calcium Level 8.6 Height (Feet): 5 Height (Inches): 0.33 Weight (Pounds): 168 EENT: TMs normal Neck: normal alignment Cardiovascular: regular rhythm Respiratory/Chest: no respiratory distress Abdomen: no mass Genitourinary/Rectal: heme negative stool Extremities: non-tender Neurologic: alert Skin: warm/dry Harley Albrecht MD Feb 15, 2018 07:03
[2018-02-15 08:00] VITALS: BP 116/72
[2018-02-15] MEDS: Docusate 100mg cap ORAL SCH ×2 (09:02→17:30)
[2018-02-15] MEDS: Heparin 5000 units/ml inj SUBQ SCH ×2 (09:03→21:03)
--- NOTE | 2018-02-15 09:38 | General Progress Note ---
Assessment/Plan Problem List: (1) Rash and other nonspecific skin eruption ICD Codes: R21 - Rash and other nonspecific skin eruption SNOMED: 562537136, 681500789 (2) Abscesses of both axillae ICD Codes: L02.411 - Cutaneous abscess of right axilla; L02.412 - Cutaneous abscess of left axilla SNOMED: 13326869 (3) Cellulitis of axilla ICD Codes: L03.119 - Cellulitis of unspecified part of limb SNOMED: 90388210 (4) Purulent abscess ICD Codes: L02.91 - Cutaneous abscess, unspecified SNOMED: 640081984 (5) Hidradenitis axillaris ICD Codes: L73.2 - Hidradenitis suppurativa SNOMED: 120053414 (6) Failure of outpatient treatment ICD Codes: Z78.9 - Other specified health status SNOMED: 652372317 Status: stable Assessment/Plan #Rash #Abscesses of both axilae #Cellulitis of axilla #Purulent abscess #hidradenitis axillaris #failure of outpatient treatment #DEBRA - Cr 1.5, improving slowly, Nephro consulted - ID consulted, appreciate recs, abx changed to cefepime and doxy per ID recs - s/p b/l debridement axillae excision by Dr. Heck on 02/10/18, underwent wound closure 02/12/18. arrange for home wound care and abx for dc tomorrow. - cont NS at 75 ml/h - stable, doing well, pain well controlled - continue Colace and Miralax prn - continue routine post-op care including: incentive spirometry, antibiotics, pain control, heparin SC for VTE prophylaxis per surgery recs ppx; scd, heparin diet: regular diet I have spent 49 minutes on this patient's case, counseling and/or care coordination and about 35 minutes of face to face time ppx; scd, heparin diet: regular diet Subjective Date patient seen: Feb 15, 2018 Allergies: Coded Allergies: No Known Allergies (Unverified , 02/09/18) Subjective f/u axillary abscess with drainage, pain, debra tolerated procedures well no acute complications noted she states pain is well controlled, on DISPOSAL OPERATOR denies any fevers/chills/cp/sob/nausea/vomiting/diarrhea/constipation/abd pain ROS: 12 point ros negative except for the above Objective Last 24 Hour Vital Signs Date Time Temp Pulse Resp B/P (MAP) Pulse Ox O2 Delivery O2 Flow Rate FiO2 02/15/18 08:16 Room Air 02/15/18 08:00 18 02/15/18 08:00 99.1 65 18 116/72 (87) 100 65 02/15/18 04:00 18 02/15/18 04:00 98.2 64 18 125/75 (92) 98 02/15/18 00:00 18 02/14/18 23:30 98.2 67 20 127/88 (101) 99 02/14/18 21:00 Room Air 02/14/18 20:00 18 02/14/18 20:00 98.3 67 18 117/59 (78) 98 02/14/18 16:01 99.4 02/14/18 16:00 99.4 74 18 111/66 (81) 98 02/14/18 16:00 18 02/14/18 12:00 18 02/14/18 12:00 99.1 70 18 111/67 (82) 96 Intake and Output 02/14/18 02/15/18 19:00 07:00 Intake Total 527.5 ml 625 ml Output Total 565 ml 308 ml Balance -37.5 ml 317 ml Intake Oral 500 ml 250 ml IV Total 27.5 ml 375 ml Output Urine Total 500 ml 250 ml Drainage Total 65 ml 58 ml # Voids 3 2 Laboratory Tests 02/14/18 11:00: Stool Occult Blood Positive 02/14/18 16:00: Urine Color Pale yellow, Urine Appearance Clear, Urine pH 7, Urine Specific [place] 1.005, Urine Protein 1+H, Urine Glucose (UA) Negative, Urine Ketones Negative, Urine Blood Negative, Urine Nitrite Negative, Urine Bilirubin Negative , Urine Urobilinogen Normal, Urine Leukocyte Esterase 1+H, Urine RBC 0, Urine WBC 5-10H, Urine Squamous Epithelial Cells ManyH, Urine Bacteria Few, Urine Yeast ModerateH 02/15/18 05:35: White Blood Count 11.2H, Red Blood Count 3.04L, Hemoglobin 8.7L, Hematocrit 26.3L, Mean Corpuscular Volume 86, Mean Corpuscular Hemoglobin 28.7, Mean Corpuscular Hemoglobin Concent 33.2, Red Cell Distribution Width 12.5, Platelet Count 265, Mean Platelet Volume 7.1, Neutrophils (%) (Auto) 76.2H, Lymphocytes ( %) (Auto) 14.9L, Monocytes (%) (Auto) 7.3, Eosinophils (%) (Auto) 1.2, Basophils (%) (Auto) 0.5, Sodium Level 138, Potassium Level 3.4L, Chloride Level 105, Carbon Dioxide Level 28, Anion Gap 5, Blood Urea Nitrogen 9, Creatinine 1.5H, Estimat Glomerular Filtration Rate 38.3, Glucose Level 99, Calcium Level 8.6 Height (Feet): 5 Height (Inches): 0.33 Weight (Pounds): 168 General Appearance: WD/WN, no apparent distress, alert EENT: PERRL/EOMI, normal ENT inspection, TMs normal, pharynx normal Neck: non-tender, normal alignment, supple, normal inspection Cardiovascular: normal peripheral pulses, normal rate, regular rhythm Respiratory/Chest: chest wall non-tender, lungs clear, normal breath sounds, no respiratory distress, no accessory muscle use Abdomen: normal bowel sounds, non tender, soft Extremities: normal range of motion, non-tender, normal inspection Neurologic: cut off saw operator pipe blanks II-XII grossly normal, no motor/sensory deficits, alert, oriented x 3, responsive, normal mood/affect Objective General Appearance: WD/WN, no apparent distress Lines, tubes and drains: peripheral HEENT: normocephalic, atraumatic, anicteric Neck: non-tender, normal alignment, supple, normal inspection Respiratory/Chest: chest wall non-tender, lungs clear, normal breath sounds, no respiratory distress, no accessory muscle use Cardiovascular/Chest: normal peripheral pulses, normal rate, regular rhythm Abdomen: normal bowel sounds, non tender, soft, no organomegaly, no mass Extremities: normal range of motion, other - +TTP b/l axillas Skin Exam: other - b/l abscesses around 8cm, severe erythema with mucopurulent discharge Neurologic: cut off saw operator pipe blanks II-XII grossly normal, no motor/sensory deficits, alert, oriented x 3, responsive, normal mood/affect Aditya Zarco MD Feb 15, 2018 09:38
--- NOTE | 2018-02-15 10:00 | General Progress Note ---
Progress Note Progress Note Pt seen and examined. POD# 3 from flap closure of axillary wounds. Doing well. Both flaps completely viable. Economic Manager down from 1.6 to 1.5. Vanco stopped yesterday. If Economic Manager lower tomorrow then can dc in Am. Shalini Daniel MD, MD Feb 15, 2018 10:00
--- NOTE | 2018-02-15 10:40 | Consultation ---
Consult Note Consult Note asked to eval for rising Cr chart reviewed patient examined data reviewed Assessment/Plan Acuye renal failure- Multifactorial , partly dehydration Low Iron Anemia Low K Abscesses of both axillae, purulent Cellulitis of axilla Failure of outpatient treatment UTI Enterobacter Obesity IV D%NS+ K Po Protonix IV Iron Avoid Nephrotoxics monitor lytes and renal parameters Ramesh Rowan MD Feb 15, 2018 10:40
[2018-02-15] MEDS: D5NS w/KCl 40mEq 1000ml 1,000 ML IV SCH (11:01)
[2018-02-15 12:00] VITALS: BP 106/68
[2018-02-15] MEDS ORDERED: Iron Sucrose 200 MG in NS 110 ML IV ONE (12:00)
[2018-02-15] MEDS: HYDROcodone/Acetamin 10/325 tab ORAL PRN ×2 (12:09→17:33)
[2018-02-15] MEDS ORDERED: Tubing IV Secondary IV ONE (15:31)
[2018-02-15 16:00] VITALS: BP 113/63
[2018-02-15 20:00] VITALS: BP 115/65
[2018-02-15] MEDS ORDERED: Iron Sucrose 100 MG in NS 55 ML IV SCH (21:00)
[2018-02-15 23:57] VITALS: BP 109/62
[2018-02-16] MEDS: D5NS w/KCl 40mEq 1000ml 1,000 ML IV SCH ×2 (00:36→14:30)
[2018-02-16] MEDS: HYDROcodone/Acetamin 10/325 tab ORAL PRN (01:33)
[2018-02-16 04:00] VITALS: BP 103/57
[2018-02-16 06:15] LABS: BASOPHILS % (AUTO) 0.6 % (0.0-2.0); EOSINOPHILS % (AUTO) 4.1 % (0.0-3.0); HEMOGLOBIN 8.2 G/DL (12.0-16.0); LYMPHOCYTES % (AUTO) 22.4 % (20.0-45.0); MEAN CORPUSCULAR VOLUME 87 FL (80-99); MONOCYTES % (AUTO) 7.1 % (1.0-10.0); NEUTROPHILS % (AUTO) 65.8 % (45.0-75.0); PLATELET COUNT 275 K/UL (150-450); RED BLOOD COUNT 2.88 M/UL (4.20-5.40); RED CELL DISTRIBUTION WIDTH 12.7 % (11.6-14.8); WHITE BLOOD COUNT 9.6 K/UL (4.8-10.8)
[2018-02-16 06:45] LABS: ALANINE AMINOTRANSFERASE 12 U/L (12-78); ALBUMIN 2.1 G/DL (3.4-5.0); ALBUMIN/GLOBULIN RATIO 0.4 (1.0-2.7); ALKALINE PHOSPHATASE 67 U/L (46-116); ANION GAP 8 mmol/L (5-15); ASPARTATE AMINO TRANSFERASE 10 U/L (15-37); BILIRUBIN,TOTAL 0.2 MG/DL (0.2-1.0); BLOOD UREA NITROGEN 9 mg/dL (7-18); CALCIUM 8.4 MG/DL (8.5-10.1); CARBON DIOXIDE 26 MMOL/L (21-32); CHLORIDE 108 MMOL/L (98-107); CREATININE 1.5 MG/DL (0.55-1.30); PHOSPHORUS 3.4 MG/DL (2.5-4.9); POTASSIUM 3.9 MMOL/L (3.5-5.1); SODIUM 142 MMOL/L (136-145)
[2018-02-16 08:00] VITALS: BP 124/71
[2018-02-16] MEDS ORDERED: NORCO 5-325 TA1 EACH ORAL (08:19)
[2018-02-16] MEDS ORDERED: CEPHALEXIN500 MG ORAL (08:20)
[2018-02-16] MEDS ORDERED: VIBRAMYCIN100 MG ORAL (08:21)
[2018-02-16] MEDS ORDERED: PERI-COLACE1 EA ORAL (08:22)
[2018-02-16] MEDS: Docusate 100mg cap ORAL SCH ×3 (08:31→17:38)
[2018-02-16] MEDS: Heparin 5000 units/ml inj SUBQ SCH ×2 (08:34→21:48)
--- NOTE | 2018-02-16 09:32 | Nephrology Progress Note ---
Assessment/Plan Problem List: (1) Abscesses of both axillae (2) Cellulitis of axilla (3) Acute renal failure (ARF) Assessment Acuye renal failure- Multifactorial , partly dehydration Low Iron Anemia Low K Abscesses of both axillae, purulent Cellulitis of axilla Failure of outpatient treatment UTI Enterobacter Obesity Plan IV D5NS+ K Po Protonix IV Iron Avoid Nephrotoxics monitor lytes and renal parameters stop Cooter check labs in am Subjective ROS Limited/Unobtainable: No Constitutional: Reports: malaise, other - nausea Objective Objective Last 24 Hour Vital Signs Date Time Temp Pulse Resp B/P (MAP) Pulse Ox O2 Delivery O2 Flow Rate FiO2 02/16/18 08:00 98.2 63 18 124/71 (88) 100 02/16/18 07:53 Room Air 02/16/18 04:00 97.9 59 14 103/57 (72) 95 02/15/18 23:57 98.8 64 18 109/62 (78) 99 02/15/18 21:00 Room Air 02/15/18 20:00 98.6 66 18 115/65 (82) 98 02/15/18 18:03 98.8 02/15/18 16:00 98.8 66 19 113/63 (80) 98 02/15/18 12:00 98.8 64 18 106/68 (81) 99 02/15/18 10:03 18 Intake and Output 02/15/18 02/16/18 19:00 07:00 Intake Total 1607.5 ml 675 ml Output Total 1450 ml 50 ml Balance 157.5 ml 625 ml Intake Oral 800 ml IV Total 807.5 ml 675 ml Output Urine Total 1400 ml Drainage Total 50 ml 50 ml # Voids 2 Laboratory Tests 02/16/18 05:57: White Blood Count 9.6, Red Blood Count 2.88L, Hemoglobin 8.2L, Hematocrit 25.0L , Mean Corpuscular Volume 87, Mean Corpuscular Hemoglobin 28.5, Mean Corpuscular Hemoglobin Concent 32.8, Red Cell Distribution Width 12.7, Platelet Count 275, Mean Platelet Volume 6.8, Neutrophils (%) (Auto) 65.8, Lymphocytes (% ) (Auto) 22.4, Monocytes (%) (Auto) 7.1, Eosinophils (%) (Auto) 4.1H, Basophils (%) (Auto) 0.6, Sodium Level 142, Potassium Level 3.9, Chloride Level 108H, Carbon Dioxide Level 26, Anion Gap 8, Blood Urea Nitrogen 9, Creatinine 1.5H, Estimat Glomerular Filtration Rate 38.3, Glucose Level 95, Hemoglobin A1c 4.7, Uric Acid 4.2, Calcium Level 8.4L, Phosphorus Level 3.4, Magnesium Level 1.8, Total Bilirubin 0.2, Aspartate Amino Transf (AST/SGOT) 10L, Alanine Aminotransferase (ALT/SGPT) 12, Alkaline Phosphatase 67, Total Protein 6.8, Albumin 2.1L, Globulin 4.7, Albumin/Globulin Ratio 0.4L, Vitamin B12 Level 330, Folate 6.4L Height (Feet): 5 Height (Inches): 0.33 Weight (Pounds): 168 General Appearance: no apparent distress Cardiovascular: normal rate Respiratory/Chest: lungs clear Abdomen: soft Ramesh Rowan MD Feb 16, 2018 09:32
[2018-02-16] MEDS ORDERED: Vitamin B12 1000mcg/ml Inj SUBQ SCH (10:00)
--- NOTE | 2018-02-16 10:10 | General Progress Note ---
Assessment/Plan Problem List: (1) Rash and other nonspecific skin eruption ICD Codes: R21 - Rash and other nonspecific skin eruption SNOMED: 741809150, [id number] (2) Abscesses of both axillae ICD Codes: L02.411 - Cutaneous abscess of right axilla; L02.412 - Cutaneous abscess of left axilla SNOMED: 54426187 (3) Cellulitis of axilla ICD Codes: L03.119 - Cellulitis of unspecified part of limb SNOMED: 80259271 (4) Purulent abscess ICD Codes: L02.91 - Cutaneous abscess, unspecified SNOMED: 276756336 (5) Hidradenitis axillaris ICD Codes: L73.2 - Hidradenitis suppurativa SNOMED: 786150879 (6) Failure of outpatient treatment ICD Codes: Z78.9 - Other specified health status SNOMED: 240922960 Assessment/Plan #Rash #Abscesses of both axilae #Cellulitis of axilla #Purulent abscess #hidradenitis axillaris #failure of outpatient treatment #DEBRA - Cr 1.5 yesterday, repeat labs from today showing unchanged renal function of 1.5 again, Discussed case with nephrology, will continue to monitor for another day with close monitoring of BMP - ID consulted, appreciate recs, abx changed to cefepime and doxy per ID recs during stay, for dc can go home with keflex and doxy for 7 days - s/p b/l debridement axillae excision by Dr. Heck on 02/10/18, underwent wound closure 02/12/18. - Home health wound care set up for patient - cont NS at 75 ml/h - stable, doing well, pain well controlled - continue Colace and Miralax prn - continue routine post-op care including: incentive spirometry, antibiotics, pain control, heparin SC for VTE prophylaxis per surgery recs ppx; scd, heparin diet: regular diet I have spent 40 minutes on this patient's case, counseling and/or care coordination and about 25 minutes of face to face time ppx; scd, heparin diet: regular diet Subjective Date patient seen: Feb 16, 2018 Time patient seen: 07:45 Allergies: Coded Allergies: No Known Allergies (Unverified , 02/09/18) Subjective f/u axillary abscess with drainage, pain, debra tolerated procedures well no acute complications noted she states pain is well controlled, on [employer]ANT denies any fevers/chills/cp/sob/nausea/vomiting/diarrhea/constipation/abd pain antibiotics and norco prescribed for her and placed in chart along with bowel care patient noted to have DEBRA that has not changed since yesterday, due to concerns of renal function will monitor for another day and continue hydration, Cr still at 1.5, nephrology following her closely. ROS: 12 point ros negative except for the above Objective Last 24 Hour Vital Signs Date Time Temp Pulse Resp B/P (MAP) Pulse Ox O2 Delivery O2 Flow Rate FiO2 02/16/18 08:00 98.2 63 18 124/71 (88) 100 02/16/18 07:53 Room Air 02/16/18 04:00 97.9 59 14 103/57 (72) 95 02/15/18 23:57 98.8 64 18 109/62 (78) 99 02/15/18 21:00 Room Air 02/15/18 20:00 98.6 66 18 115/65 (82) 98 02/15/18 18:03 98.8 02/15/18 16:00 98.8 66 19 113/63 (80) 98 02/15/18 12:00 98.8 64 18 106/68 (81) 99 Intake and Output 02/15/18 02/16/18 19:00 07:00 Intake Total 1607.5 ml 675 ml Output Total 1450 ml 50 ml Balance 157.5 ml 625 ml Intake Oral 800 ml IV Total 807.5 ml 675 ml Output Urine Total 1400 ml Drainage Total 50 ml 50 ml # Voids 2 Laboratory Tests 02/16/18 05:57: White Blood Count 9.6, Red Blood Count 2.88L, Hemoglobin 8.2L, Hematocrit 25.0L , Mean Corpuscular Volume 87, Mean Corpuscular Hemoglobin 28.5, Mean Corpuscular Hemoglobin Concent 32.8, Red Cell Distribution Width 12.7, Platelet Count 275, Mean Platelet Volume 6.8, Neutrophils (%) (Auto) 65.8, Lymphocytes (% ) (Auto) 22.4, Monocytes (%) (Auto) 7.1, Eosinophils (%) (Auto) 4.1H, Basophils (%) (Auto) 0.6, Sodium Level 142, Potassium Level 3.9, Chloride Level 108H, Carbon Dioxide Level 26, Anion Gap 8, Blood Urea Nitrogen 9, Creatinine 1.5H, Estimat Glomerular Filtration Rate 38.3, Glucose Level 95, Hemoglobin A1c 4.7, Uric Acid 4.2, Calcium Level 8.4L, Phosphorus Level 3.4, Magnesium Level 1.8, Total Bilirubin 0.2, Aspartate Amino Transf (AST/SGOT) 10L, Alanine Aminotransferase (ALT/SGPT) 12, Alkaline Phosphatase 67, Total Protein 6.8, Albumin 2.1L, Globulin 4.7, Albumin/Globulin Ratio 0.4L, Vitamin B12 Level 330, Folate 6.4L Height (Feet): 5 Height (Inches): 0.33 Weight (Pounds): 168 General Appearance: WD/WN, no apparent distress, alert EENT: PERRL/EOMI, normal ENT inspection, TMs normal, pharynx normal Neck: non-tender, normal alignment, supple Cardiovascular: normal peripheral pulses, normal rate, regular rhythm Respiratory/Chest: chest wall non-tender, lungs clear, normal breath sounds, no respiratory distress, no accessory muscle use Abdomen: normal bowel sounds, non tender, soft, no organomegaly, no mass Extremities: normal range of motion, non-tender, normal inspection, no calf tenderness Neurologic: cutter apprentice hand II-XII grossly normal, no motor/sensory deficits, alert, oriented x 3, responsive Skin: normal pigmentation, warm/dry Objective General Appearance: WD/WN, no apparent distress Lines, tubes and drains: peripheral HEENT: normocephalic, atraumatic, anicteric Neck: non-tender, normal alignment, supple, normal inspection Respiratory/Chest: chest wall non-tender, lungs clear, normal breath sounds, no respiratory distress, no accessory muscle use Cardiovascular/Chest: normal peripheral pulses, normal rate, regular rhythm Abdomen: normal bowel sounds, non tender, soft, no organomegaly, no mass Extremities: normal range of motion, other - +TTP b/l axillas Skin Exam: other - b/l abscesses around 8cm, severe erythema with mucopurulent discharge Neurologic: cutter apprentice hand II-XII grossly normal, no motor/sensory deficits, alert, oriented x 3, responsive, normal mood/affect Aditya Zarco MD Feb 16, 2018 10:10
--- NOTE | 2018-02-16 10:39 | General Progress Note ---
Assessment/Plan Status: stable Assessment/Plan 1. Anemia due to iron deficiency, in young woman, likely related to underlying menstrual cycle. The patient has mildly microcytic anemia, rule out other causes. Pt denies having heavy menstrual periods in the past. --> anemia panel has been reviewed Ferritin at 60, TIBC at 178 --> IV iron x5 days through 15 --> no hemolysis is noted --> Cont po folic acid daily --> transfuse only on PRN basis, if hypotensive or hgb <7 --> 1 dose of epo given prior to surgery 2. Leukocytosis secondary to most recent surgery, bilateral axillary surgery. Most recent surgery was this past Thursday. --> improved, also could be 2/2 uti --> remains on IV abx 3. Hiddradenitis with bilateral axillary tissue hidradenitis, flap elevation. --> recs per surgery 4. Hypocalcemia. We will administer calcium as required, Os-Vipin and vitamin D. 5. Hyperproteinemia. spep still pending Greatly appreciate consultation! Subjective Date patient seen: Feb 16, 2018 Hematologic/Lymphatic: Reports: anemia Allergies: Coded Allergies: No Known Allergies (Unverified , 02/09/18) All Systems: reviewed and negative except above Subjective Pt awake and alert. No acute events. H/H stable. VS stable. Objective Last 24 Hour Vital Signs Date Time Temp Pulse Resp B/P (MAP) Pulse Ox O2 Delivery O2 Flow Rate FiO2 02/16/18 08:00 98.2 63 18 124/71 (88) 100 02/16/18 07:53 Room Air 02/16/18 04:00 97.9 59 14 103/57 (72) 95 02/15/18 23:57 98.8 64 18 109/62 (78) 99 02/15/18 21:00 Room Air 02/15/18 20:00 98.6 66 18 115/65 (82) 98 02/15/18 18:03 98.8 02/15/18 16:00 98.8 66 19 113/63 (80) 98 02/15/18 12:00 98.8 64 18 106/68 (81) 99 Intake and Output 02/15/18 02/16/18 19:00 07:00 Intake Total 1607.5 ml 675 ml Output Total 1450 ml 50 ml Balance 157.5 ml 625 ml Intake Oral 800 ml IV Total 807.5 ml 675 ml Output Urine Total 1400 ml Drainage Total 50 ml 50 ml # Voids 2 Laboratory Tests 02/16/18 05:57: White Blood Count 9.6, Red Blood Count 2.88L, Hemoglobin 8.2L, Hematocrit 25.0L , Mean Corpuscular Volume 87, Mean Corpuscular Hemoglobin 28.5, Mean Corpuscular Hemoglobin Concent 32.8, Red Cell Distribution Width 12.7, Platelet Count 275, Mean Platelet Volume 6.8, Neutrophils (%) (Auto) 65.8, Lymphocytes (% ) (Auto) 22.4, Monocytes (%) (Auto) 7.1, Eosinophils (%) (Auto) 4.1H, Basophils (%) (Auto) 0.6, Sodium Level 142, Potassium Level 3.9, Chloride Level 108H, Carbon Dioxide Level 26, Anion Gap 8, Blood Urea Nitrogen 9, Creatinine 1.5H, Estimat Glomerular Filtration Rate 38.3, Glucose Level 95, Hemoglobin A1c 4.7, Uric Acid 4.2, Calcium Level 8.4L, Phosphorus Level 3.4, Magnesium Level 1.8, Total Bilirubin 0.2, Aspartate Amino Transf (AST/SGOT) 10L, Alanine Aminotransferase (ALT/SGPT) 12, Alkaline Phosphatase 67, Total Protein 6.8, Albumin 2.1L, Globulin 4.7, Albumin/Globulin Ratio 0.4L, Vitamin B12 Level 330, Folate 6.4L Height (Feet): 5 Height (Inches): 0.33 Weight (Pounds): 168 General Appearance: no apparent distress, alert EENT: PERRL/EOMI Neck: normal alignment Cardiovascular: normal peripheral pulses Respiratory/Chest: no respiratory distress Abdomen: soft Harley Albrecht MD Feb 16, 2018 10:39
[2018-02-16 12:00] VITALS: BP 112/72
--- NOTE | 2018-02-16 12:37 | General Progress Note ---
Progress Note Progress Note Pt seen and examined. POD# 4 and doing well. Flow Nurse still at 1.5 so will likely stay till tomorrow as per Dr. Rowan. Will pull drains in AM. Shalini Daniel MD, MD Feb 16, 2018 12:37
--- NOTE | 2018-02-16 14:48 | Infectious Diseases Prog Note ---
Assessment/Plan Assessment/Plan A) 1) enterobacter uti, mild leukocytosis, low grade fever - clinically without fevers, leukocytosis resolved, ua with less wbc 2) pete, anemia 3,) bilateral axilla wound infection/abscess/cellulitis/hidradenitis suppurativa 4) s/p debridement and wound closure surgery 5) pmh - hidradenitis suppurativa, obesity 6) allergies - nkda, sh - negative, fh-nc, mar noted 7) d/w RN P) 1) cefepime and doxycycline 2) can transition to oral keflex plus doxycycline x one week if f/u urine culture remains negative 3) continue treatment per primary and surgery 4) monitor labs, recheck ua and culture 5) d/w Dr. Zarco about abx Subjective Constitutional: Reports: fatigue; Denies: fever HEENT: Denies: congestion Respiratory: Denies: shortness of breath Cardiovascular: Denies: chest pain Gastrointestinal/Abdominal: Denies: nausea, vomiting, diarrhea Genitourinary: Reports: other - no lynn; Denies: dysuria, hematuria, frequency Neurologic: Reports: no symptoms Psychiatric: Reports: no symptoms Skin: Reports: no symptoms; Denies: rash Hematologic: Reports: no symptoms Musculoskeletal: Reports: no symptoms; Denies: pain Allergies: Coded Allergies: No Known Allergies (Unverified , 02/09/18) Objective Vital Signs Last 24 Hour Vital Signs Date Time Temp Pulse Resp B/P (MAP) Pulse Ox O2 Delivery O2 Flow Rate FiO2 02/16/18 14:03 98.4 02/16/18 12:00 98.4 73 18 112/72 (85) 99 02/16/18 08:00 98.2 63 18 124/71 (88) 100 02/16/18 07:53 Room Air 02/16/18 04:00 97.9 59 14 103/57 (72) 95 02/15/18 23:57 98.8 64 18 109/62 (78) 99 02/15/18 21:00 Room Air 02/15/18 20:00 98.6 66 18 115/65 (82) 98 02/15/18 18:03 98.8 02/15/18 16:00 98.8 66 19 113/63 (80) 98 Height (Feet): 5 Height (Inches): 0.33 Weight (Pounds): 168 General Appearance: no acute distress HEENT: normocephalic, atraumatic, anicteric, mucous membranes moist Respiratory/Chest: lungs clear, normal breath sounds, no respiratory distress, no accessory muscle use Cardiovascular: normal rate, regular rhythm, no gallop/murmur, no JVD Abdomen: normal bowel sounds, soft, non tender, no organomegaly, non distended Genitourinary: other - no cva pain, no lynn Extremities: no cyanosis Skin: no rash, other - axilla wounds covered Neurologic/Psychiatric: machine helper II-XII grossly normal, alert, oriented x 3, responsive Lymphatic: no neck adenopathy Musculoskeletal: no effusion Objective Chest x-ray - nad, report noted Microbiology Date/Time Source Procedure Growth Status 02/14/18 16:00 Urine,Clean Catch Urine Culture - Preliminary Resulted Microbiology Date/Time Source Procedure Growth Status 02/14/18 16:00 Urine,Clean Catch Urine Culture - Preliminary Resulted Laboratory Tests Test 02/16/18 05:57 White Blood Count 9.6 K/UL (4.8-10.8) Red Blood Count 2.88 M/UL (4.20-5.40) L Hemoglobin 8.2 G/DL (12.0-16.0) L Hematocrit 25.0 % (37.0-47.0) L Mean Corpuscular Volume 87 FL (80-99) Mean Corpuscular Hemoglobin 28.5 PG (27.0-31.0) Mean Corpuscular Hemoglobin Concent 32.8 G/DL (32.0-36.0) Red Cell Distribution Width 12.7 % (11.6-14.8) Platelet Count 275 K/UL (150-450) Mean Platelet Volume 6.8 FL (6.5-10.1) Neutrophils (%) (Auto) 65.8 % (45.0-75.0) Lymphocytes (%) (Auto) 22.4 % (20.0-45.0) Monocytes (%) (Auto) 7.1 % (1.0-10.0) Eosinophils (%) (Auto) 4.1 % (0.0-3.0) H Basophils (%) (Auto) 0.6 % (0.0-2.0) Sodium Level 142 MMOL/L (136-145) Potassium Level 3.9 MMOL/L (3.5-5.1) Chloride Level 108 MMOL/L (98-107) H Carbon Dioxide Level 26 MMOL/L (21-32) Anion Gap 8 mmol/L (5-15) Blood Urea Nitrogen 9 mg/dL (7-18) Creatinine 1.5 MG/DL (0.55-1.30) H Estimat Glomerular Filtration Rate 38.3 mL/min (>60) Glucose Level 95 MG/DL (74-106) Hemoglobin A1c 4.7 % (4.3-6.0) Uric Acid 4.2 MG/DL (2.6-7.2) Calcium Level 8.4 MG/DL (8.5-10.1) L Phosphorus Level 3.4 MG/DL (2.5-4.9) Magnesium Level 1.8 MG/DL (1.8-2.4) Total Bilirubin 0.2 MG/DL (0.2-1.0) Aspartate Amino Transf (AST/SGOT) 10 U/L (15-37) L Alanine Aminotransferase (ALT/SGPT) 12 U/L (12-78) Alkaline Phosphatase 67 U/L (46-116) Total Protein 6.8 G/DL (6.4-8.2) Albumin 2.1 G/DL (3.4-5.0) L Globulin 4.7 g/dL Albumin/Globulin Ratio 0.4 (1.0-2.7) L Vitamin B12 Level 330 PG/ML (193-986) Folate 6.4 NG/ML (8.6-58.9) L Current Medications Medications (Trade) Dose Ordered Sig/Nicky Route PRN Reason Start Time Stop Time Status Last Admin Dose Admin Acetaminophen (Tylenol) 650 mg Q4H PRN ORAL FEVER 02/12/18 11:29 03/14/18 11:28 Acetaminophen (Tylenol) 650 mg TID ORAL 02/16/18 13:00 03/18/18 12:59 02/16/18 13:33 Cefepime HCl 1 gm/ Dextrose 50 ml @ 100 mls/hr Q24H IVPB 02/14/18 17:00 02/21/18 16:59 02/15/18 16:47 Dextrose/ Electrolytes 1,000 ml @ 75 mls/hr [id number] IV 02/15/18 11:00 03/17/18 10:59 02/16/18 14:30 Docusate Sodium (Colace) 100 mg TID ORAL 02/16/18 13:00 03/14/18 17:59 02/16/18 13:32 Doxycycline Monohydrate (Vibramycin) 100 mg EVERY 12 HOURS ORAL 02/14/18 21:55 02/21/18 21:54 02/16/18 08:31 Folic Acid (Folate) 2 mg DAILY ORAL 02/17/18 09:00 03/19/18 08:59 Heparin Sodium (Porcine) (Heparin 5000 units/ml) 5,000 units EVERY 12 HOURS SUBQ 02/12/18 21:00 03/14/18 20:59 02/16/18 08:34 Iron Sucrose 100 mg/Sodium Chloride 60 ml @ 240 mls/hr BEDTIME IV 02/16/18 21:00 02/20/18 21:14 Ondansetron HCl (Zofran) 4 mg Q6H PRN IVP Nausea & Vomiting 02/12/18 07:30 03/14/18 07:29 02/16/18 08:28 Pantoprazole (Protonix) 40 mg DAILY ORAL 02/16/18 09:00 03/18/18 08:59 02/16/18 08:31 Polyethylene Glycol (Miralax) 17 gm DAILYPRN PRN ORAL Constipation 02/13/18 16:45 03/15/18 16:44 02/13/18 17:41 Promethazine HCl (Phenergan) 12.5 mg EVERY 8 HOURS PRN IM Nausea & Vomiting 02/14/18 00:15 03/16/18 00:14 Zolpidem Tartrate (Ambien) 5 mg QHS PRN ORAL Insomnia 02/12/18 21:00 02/19/18 20:59 Niurka Wilkins MD Feb 16, 2018 14:48
[2018-02-16 16:00] VITALS: BP 118/60
[2018-02-16 20:00] VITALS: BP 122/67
[2018-02-16] MEDS ORDERED: Iron Sucrose 100 MG in NS 55 ML IV SCH (21:00)
[2018-02-17] VITALS: BP 125/70
[2018-02-17 04:00] VITALS: BP 125/73
[2018-02-17 06:02] LABS: BASOPHILS % (AUTO) 0.7 % (0.0-2.0); HEMATOCRIT 25.4 % (37.0-47.0); HEMOGLOBIN 8.3 G/DL (12.0-16.0); MEAN CORPUSCULAR VOLUME 87 FL (80-99); MONOCYTES % (AUTO) 8.1 % (1.0-10.0); NEUTROPHILS % (AUTO) 65.2 % (45.0-75.0); PLATELET COUNT 272 K/UL (150-450); RED BLOOD COUNT 2.91 M/UL (4.20-5.40); RED CELL DISTRIBUTION WIDTH 12.5 % (11.6-14.8); WHITE BLOOD COUNT 8.1 K/UL (4.8-10.8)
[2018-02-17 06:27] LABS: ALANINE AMINOTRANSFERASE 12 U/L (12-78); ALBUMIN 2.1 G/DL (3.4-5.0); ALBUMIN/GLOBULIN RATIO 0.4 (1.0-2.7); ALKALINE PHOSPHATASE 74 U/L (46-116); ANION GAP 6 mmol/L (5-15); ASPARTATE AMINO TRANSFERASE 11 U/L (15-37); BILIRUBIN,TOTAL 0.2 MG/DL (0.2-1.0); BLOOD UREA NITROGEN 9 mg/dL (7-18); CALCIUM 8.4 MG/DL (8.5-10.1); CARBON DIOXIDE 26 MMOL/L (21-32); CHLORIDE 109 MMOL/L (98-107); CREATININE 1.5 MG/DL (0.55-1.30); PHOSPHORUS 3.2 MG/DL (2.5-4.9); POTASSIUM 3.7 MMOL/L (3.5-5.1); SODIUM 141 MMOL/L (136-145)
[2018-02-17] MEDS: D5NS w/KCl 40mEq 1000ml 1,000 ML IV SCH (06:52)
--- NOTE | 2018-02-17 07:02 | General Progress Note ---
Assessment/Plan Assessment/Plan 1. Anemia due to iron deficiency, likely related to underlying menstrual cycle. The patient has mildly microcytic anemia, rule out other causes. Pt denies having heavy menstrual periods in the past. --> anemia panel has been reviewed Ferritin at 60, TIBC at 178 --> IV iron x5 days through 15 --> no hemolysis is noted --> Cont po folic acid daily --> transfuse only on PRN basis, if hypotensive or hgb <7 --> 1 dose of epo given prior to surgery 2. Leukocytosis secondary to most recent surgery, bilateral axillary surgery. Most recent surgery was this past Thursday. --> improved, also could be 2/2 uti --> remains on IV abx --> outpatient po abx as per id 3. Hiddradenitis with bilateral axillary tissue hidradenitis, flap elevation. --> recs per surgery 4. Hypocalcemia. We will administer calcium as required --> Os-Vipni and vitamin D. 5. Hyperproteinemia. spep negative for m-spike Greatly appreciate consultation! Subjective Constitutional: Denies: no symptoms, chills, diaphoresis, fever, malaise, weakness, other HEENT: Denies: no symptoms, eye pain, blurred vision, tearing, double vision, ear pain, ear discharge, nose pain, nose congestion, throat pain, throat swelling, mouth pain, mouth swelling, other Cardiovascular: Denies: no symptoms, chest pain, edema, irregular heart rate, lightheadedness, palpitations, syncope, other Respiratory: Denies: no symptoms, cough, orthopnea, shortness of breath, SOB with excertion, SOB at rest, sputum, stridor, wheezing, other Gastrointestinal/Abdominal: Denies: no symptoms, abdomen distended, abdominal pain, black stools, tarry stools, blood in stool, constipated, diarrhea, difficulty swallowing, nausea, poor appetite, poor fluid intake, rectal bleeding , vomiting, other Genitourinary: Denies: no symptoms, burning, discharge, frequency, flank pain, hematuria, incontinence, pain, urgency, other Neurologic/Psychiatric: Denies: no symptoms, anxiety, depressed, emotional problems, headache, numbness, paresthesia, pre-existing deficit, seizure, tingling, tremors, weakness, other Endocrine: Denies: no symptoms, excessive sweating, flushing, intolerance to cold, intolerance to heat, increased hunger, increased thirst, increased urine, unexplained weight gain, unexplained weight loss, other Allergies: Coded Allergies: No Known Allergies (Unverified , 02/09/18) Subjective Pt is awake and alert. No acute events. H/H stable. VS stable. Potential d/c shortly. Objective Last 24 Hour Vital Signs Date Time Temp Pulse Resp B/P (MAP) Pulse Ox O2 Delivery O2 Flow Rate FiO2 02/17/18 04:00 98.2 57 17 125/73 (90) 97 02/17/18 00:00 98.1 60 18 125/70 (88) 97 02/16/18 21:00 Room Air 02/16/18 20:00 98.3 54 18 122/67 (85) 99 02/16/18 18:09 99.6 02/16/18 16:00 99.6 66 18 118/60 (79) 99 02/16/18 14:03 98.4 02/16/18 12:00 98.4 73 18 112/72 (85) 99 02/16/18 08:00 98.2 63 18 124/71 (88) 100 02/16/18 07:53 Room Air Intake and Output 02/16/18 02/17/18 19:00 07:00 Intake Total 1712.5 ml 800 ml Output Total 70 ml 25 ml Balance 1642.5 ml 775 ml Intake Oral 1000 ml 800 ml IV Total 712.5 ml Drainage Total 70 ml 25 ml # Voids 3 2 Laboratory Tests 02/17/18 04:45: White Blood Count 8.1, Red Blood Count 2.91L, Hemoglobin 8.3L, Hematocrit 25.4L , Mean Corpuscular Volume 87, Mean Corpuscular Hemoglobin 28.5, Mean Corpuscular Hemoglobin Concent 32.6, Red Cell Distribution Width 12.5, Platelet Count 272, Mean Platelet Volume 6.7, Neutrophils (%) (Auto) 65.2, Lymphocytes (% ) (Auto) 21.0, Monocytes (%) (Auto) 8.1, Eosinophils (%) (Auto) 5.0H, Basophils (%) (Auto) 0.7, Sodium Level 141, Potassium Level 3.7, Chloride Level 109H, Carbon Dioxide Level 26, Anion Gap 6, Blood Urea Nitrogen 9, Creatinine 1.5H, Estimat Glomerular Filtration Rate 38.3, Glucose Level 98, Uric Acid 4.2, Calcium Level 8.4L, Phosphorus Level 3.2, Magnesium Level 1.7L, Total Bilirubin 0.2, Aspartate Amino Transf (AST/SGOT) 11L, Alanine Aminotransferase (ALT/SGPT) 12, Alkaline Phosphatase 74, Total Protein 6.8, Albumin 2.1L, Globulin 4.7, Albumin/Globulin Ratio 0.4L Height (Feet): 5 Height (Inches): 0.33 Weight (Pounds): 168 General Appearance: no apparent distress EENT: TMs normal Neck: supple Cardiovascular: regular rhythm Edema: mild edema Neurologic: oriented x 3 Skin: warm/dry Harley Albrecht MD Feb 17, 2018 07:02
[2018-02-17 08:00] VITALS: BP 138/73
[2018-02-17] MEDS: Docusate 100mg cap ORAL SCH ×2 (08:27→13:03)
[2018-02-17] MEDS: Heparin 5000 units/ml inj SUBQ SCH (08:30)
--- NOTE | 2018-02-17 08:43 | Discharge Instructions ---
Discharge Instructions Discharge Instructions Follow up with: PCP within 1 week as instructed, repeat BMP to monitor renal function in 1w Services at Discharge: home health services, other - wound care Diet: regular Resume Normal Activity?: Yes Follow Up Orders BMP in 1 week per PMD avoid NSAIDs as instructed For Surgical Patients Clean and Dry: surgical site Dressing Care: keep dry and clean For Congestive Heart Failure Reminder Report to your physician any weight gain of 5 pounds or more in one week. Aditya Zarco MD Feb 17, 2018 08:43
--- NOTE | 2018-02-17 08:47 | Discharge Summary ---
Discharge Summary Hospital Course Date of Admission Feb 09, 2018 at 14:26 Date of Discharge 02/17/18 Admitting Diagnosis HIDRIDENITIS HPI Marisela Franz is a 42 year old female who was admitted on Feb 09, 2018 at 14:26 for Hidradenitis s/p b/l debridement axillae excision by Dr. Heck on 02/10/18, underwent wound closure 02/12/18. Hospital Course #Rash #Abscesses of both axilae #Cellulitis of axilla #Purulent abscess #hidradenitis axillaris #failure of outpatient treatment #DEBRA - s/p b/l debridement axillae excision by Dr. Heck on 02/10/18, underwent wound closure 02/12/18. - Cr 1.5 for past 3 days, due to NSAIDs use, discussed case with nephro, states patient should avoid NSAIDs, can f/u with PCP and repeat BMP in 1 week, patient understands and states she will see her pcp in 1 week and recheck BMP levels - ID consulted,can dc home with keflex and doxy for 7 days - Home health wound care set up for patient - cont NS at 75 ml/h - stable, doing well, pain well controlled - continue Colace and Miralax prn diet: regular diet I have spent over 40 minutes on this patient's case, counseling and/or care coordination and discharge coordination Discharge Medications Continued Medications: Cephalexin* (Keflex*) 500 Mg Capsule 500 MG ORAL EVERY 12 HOURS for 7 Days, #14 CAP 0 Refills (This prescription has been renewed) Docusate Sod/Senna (Docusate Sodium-Senna Tablet) 1 Each Tablet 1 CAP ORAL DAILY for 7 Days, #7 CAP 0 Refills (This prescription has been renewed) Doxycycline Hyclate* (Vibramycin*) 100 Mg Capsule 100 MG ORAL DAILY for 7 Days, #7 CAP 0 Refills (This prescription has been renewed) Hydrocodone Bit/Acetaminophen 5-325* ([place] 5-325*) 1 Each Tablet 1 TAB ORAL Q6H PRN for For Pain for 7 Days, #25 TAB 0 Refills (This prescription has been renewed) Discharge Condition Upon Discharge: stable Discharge Disposition Patient was discharged to home with wound care Discharge Diagnoses: (1) Acute renal failure (ARF) (2) Rash and other nonspecific skin eruption (3) Abscesses of both axillae (4) Hidradenitis axillaris (5) Purulent abscess (6) Cellulitis of axilla (7) Failure of outpatient treatment Discharge Instructions Discharge Instructions Follow up with: PCP within 1 week as instructed, repeat BMP to monitor renal function in 1w Services Upon Discharge: home health services, other - wound care For Surgical Patients Clean and Dry: surgical site Dressing Care: keep dry and clean Aditya Zarco MD Feb 17, 2018 08:47
--- NOTE | 2018-02-17 11:09 | Nephrology Progress Note ---
Assessment/Plan Problem List: (1) Abscesses of both axillae (2) Cellulitis of axilla (3) Acute renal failure (ARF) Assessment: Cr 1.5 Assessment Acuye renal failure- Multifactorial , partly dehydration Low Iron Anemia Low K Abscesses of both axillae, purulent Cellulitis of axilla Failure of outpatient treatment UTI Enterobacter Obesity Plan OK to DC- follow up with PMD in 2 days- AVOID NSAIDs Po Protonix IV Iron Avoid Nephrotoxics monitor lytes and renal parameters stop Blossom check labs in am Subjective ROS Limited/Unobtainable: No Objective Objective Last 24 Hour Vital Signs Date Time Temp Pulse Resp B/P (MAP) Pulse Ox O2 Delivery O2 Flow Rate FiO2 02/17/18 09:00 Room Air 02/17/18 08:00 97.9 55 18 138/73 (94) 97 02/17/18 04:00 98.2 57 17 125/73 (90) 97 02/17/18 00:00 98.1 60 18 125/70 (88) 97 02/16/18 21:00 Room Air 02/16/18 20:00 98.3 54 18 122/67 (85) 99 02/16/18 18:09 99.6 02/16/18 16:00 99.6 66 18 118/60 (79) 99 02/16/18 14:03 98.4 02/16/18 12:00 98.4 73 18 112/72 (85) 99 Intake and Output 02/16/18 02/17/18 19:00 07:00 Intake Total 1712.5 ml 800 ml Output Total 70 ml 85 ml Balance 1642.5 ml 715 ml Intake Oral 1000 ml 800 ml IV Total 712.5 ml Drainage Total 70 ml 85 ml # Voids 3 4 Current Medications Medications (Trade) Dose Ordered Sig/Nicky Route PRN Reason Start Time Stop Time Status Last Admin Dose Admin Cefepime HCl 1 gm/ Dextrose 50 ml @ 100 mls/hr Q24H IVPB 02/14/18 17:00 02/21/18 16:59 02/16/18 17:10 Dextrose/ Electrolytes 1,000 ml @ 75 mls/hr [id number] IV 02/15/18 11:00 03/17/18 10:59 02/17/18 06:52 Docusate Sodium (Colace) 100 mg TID ORAL 02/16/18 13:00 03/14/18 17:59 02/17/18 08:27 Doxycycline Monohydrate (Vibramycin) 100 mg EVERY 12 HOURS ORAL 02/14/18 21:55 02/21/18 21:54 02/17/18 08:28 Folic Acid (Folate) 2 mg DAILY ORAL 02/17/18 09:00 03/19/18 08:59 02/17/18 08:28 Heparin Sodium (Porcine) (Heparin 5000 units/ml) 5,000 units EVERY 12 HOURS SUBQ 02/12/18 21:00 03/14/18 20:59 02/17/18 08:30 Iron Sucrose 100 mg/Sodium Chloride 60 ml @ 240 mls/hr BEDTIME IV 02/16/18 21:00 02/20/18 21:14 02/16/18 21:46 Ondansetron HCl (Zofran) 4 mg Q6H PRN IVP Nausea & Vomiting 02/12/18 07:30 03/14/18 07:29 02/16/18 08:28 Pantoprazole (Protonix) 40 mg DAILY ORAL 02/16/18 09:00 03/18/18 08:59 02/17/18 08:27 Polyethylene Glycol (Miralax) 17 gm DAILYPRN PRN ORAL Constipation 02/13/18 16:45 03/15/18 16:44 02/13/18 17:41 Promethazine HCl (Phenergan) 12.5 mg EVERY 8 HOURS PRN IM Nausea & Vomiting 02/14/18 00:15 03/16/18 00:14 Zolpidem Tartrate (Ambien) 5 mg QHS PRN ORAL Insomnia 02/12/18 21:00 02/19/18 20:59 Laboratory Tests 02/17/18 04:45: White Blood Count 8.1, Red Blood Count 2.91L, Hemoglobin 8.3L, Hematocrit 25.4L , Mean Corpuscular Volume 87, Mean Corpuscular Hemoglobin 28.5, Mean Corpuscular Hemoglobin Concent 32.6, Red Cell Distribution Width 12.5, Platelet Count 272, Mean Platelet Volume 6.7, Neutrophils (%) (Auto) 65.2, Lymphocytes (% ) (Auto) 21.0, Monocytes (%) (Auto) 8.1, Eosinophils (%) (Auto) 5.0H, Basophils (%) (Auto) 0.7, Sodium Level 141, Potassium Level 3.7, Chloride Level 109H, Carbon Dioxide Level 26, Anion Gap 6, Blood Urea Nitrogen 9, Creatinine 1.5H, Estimat Glomerular Filtration Rate 38.3, Glucose Level 98, Uric Acid 4.2, Calcium Level 8.4L, Phosphorus Level 3.2, Magnesium Level 1.7L, Total Bilirubin 0.2, Aspartate Amino Transf (AST/SGOT) 11L, Alanine Aminotransferase (ALT/SGPT) 12, Alkaline Phosphatase 74, Total Protein 6.8, Albumin 2.1L, Globulin 4.7, Albumin/Globulin Ratio 0.4L Height (Feet): 5 Height (Inches): 0.33 Weight (Pounds): 168 General Appearance: no apparent distress Objective no change Ramesh Rowan MD Feb 17, 2018 11:09
[2018-02-17 12:00] VITALS: BP 129/77
== END 2018-02-17 13:45 | disposition home or self-care (01) | DRG 574 ==
LOC: EDBEDREQ 14:07 → EMR 14:15 → 3E 14:26 → EDBEDREQ 14:27
DX: L03.112 Cellulitis of left axilla (principal); N39.0 Urinary tract infection, site not specified; N17.9 Acute kidney failure, unspecified; L73.2 Hidradenitis suppurativa; L03.111 Cellulitis of right axilla; B96.89 Other specified bacterial agents as the cause of diseases classified elsewhere; E83.51 Hypocalcemia; E88.09 Other disorders of plasma-protein metabolism, not elsewhere classified; E66.9 Obesity, unspecified; Z68.32 Body mass index [BMI] 32.0-32.9, adult; E86.0 Dehydration; K59.00 Constipation, unspecified; D50.9 Iron deficiency anemia, unspecified; R21 Rash and other nonspecific skin eruption
CPT/HCPCS: 36415; 71045; 80048; 80053; 80202; 81003; 81025; 82270; 82607; 82728; 82746; 83036; 83540; 83550; 83615; 83690; 83735; 84100; 84165; 84443; 84550; 85007; 85025; 85044; 85060; 85384; 85610; 85660; 85730; 87086; 87181; 93005; 94003; 94150; 96365; 96366; 96367; 99284; J2250; J2405; J2710; J2765; J3490; J8499; S0077